=== PATIENT | female | born 1995 | race Caucasian/White ===

== ENCOUNTER 2019-10-27 15:19 | Emergency (ER) | payer OTHER, SELFPAY ==
[2019-10-27 15:29] VITALS: BP 136/76; PULSE 109; RESP 20; TEMP 36.8; O2SAT 100
--- NOTE | 2019-10-27 15:45 | ED.GENADULT ---
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 Daytime and nighttime flu and cold medication, Sudafed, Ibuprofen (last at noon today) and Tylenol (last 8 AM today) with little relief. Dry cough with intermittent productive cough (yellow phlegm). Rhinorrhea and nasal congestion. No exacerbating factors. High fevers, highest 101F, orally with intermittent chills. No nausea, vomiting, and abdominal pain. Denies chest pain, dyspnea, coughing up blood, difficulty swallowing, jaw pain, dental pain, facial pain, foreign body sensation, and rash. Lilly denies being , LMP 2 months ago (irregular). Some parts of this dictation were generated by voice recognition software and may contain typographical and/or grammatical inaccuracies. Related Data Home Medications Medication Instructions Recorded Confirmed Aspirin Childrens 10/27/19 folic acid 10/27/19 Allergies Allergy/AdvReac Type Severity Reaction Status Date / Time No Known Allergies Allergy Unknown Unverified 10/27/19 15:48 Review of Systems Review of Systems: Narrative: CONSTITUTIONAL: Complains of fever with intermittent chills. Denies sweats. EYES: Denies visual changes, redness, discharge. ENT: Complains of rhinorrhea, sore throat, congestion. Denies otalgia. CARDIOVASCULAR: Denies chest pain, palpitations, edema. RESPIRATORY: Denies dyspnea, wheezing. Complains of dry cough, intermittent productive cough. GASTROINTESTINAL: Denies abdominal pain, nausea, vomiting, diarrhea. GENITOURINARY: Denies dysuria, hematuria, abnormal discharge. SKIN: Denies rash or itching. MUSCULOSKELETAL: Denies acute back pain, joint pain, myalgia. NEUROLOGIC: Denies numbness or focal weakness. PSYCHIATRIC: Denies anxiety or depression. All systems reviewed & are unremarkable except as noted in HPI and below PMFSH Past Medical History Medical History (Updated 10/28/19 @ 00:00 by Pedro Pablo Tsai) No significant past medical history Surgical History Surgical History (Updated 02/09/20 @ 16:07 by ROSE MARIE Chen) History of tonsillectomy Family History Family History (Updated 10/27/19 @ 16:08 by ROSE MARIE Chen) Grandparent Diabetes mellitus Grandparent Diabetes mellitus Social History Social History (Updated 10/27/19 @ 16:09 by ROSE MARIE Chen) Smoking status: Never smoker Alcohol intake: current Alcohol use details: Occasionally Substance use: never Living arrangements: with family Occupation/Education: occupation Gender identity (if verbalized by the patient): Female Comments At time of signature, agree with nurse past medical, surgical, social, and family history. There is no relevant family history pertinent to the presenting complaint. Exam Narrative: Exam Narrative: GENERAL: This is a well-nourished, well-developed patient, in no apparent distress. Speaks in full sentences and ambulates with steady gait without dyspnea. HEAD: normocephalic, atraumatic. EYES: PERRL. Sclera clear/white. Vision is grossly intact. EARS: External ears normal, auditory canals clear and without drainage, TMs normal without perforation. Hearing grossly intact. NOSE: External nose normal with no obvious nasal discharge, nares with moderate redness and enlarged turbinates, clear rhinorrhea. THROAT: Mucous membranes moist, posterior pharynx with PND, mild erythema, and no exudate. No tonsil. No drainage, no concern for Peritonsillar abscess. No drooling, trismus, or neck swelling. NECK: Neck supple, non-tender without lymphadenopathy, masses or thyromegaly. CARDIOVASCULAR
== END 2019-10-27 16:14 | disposition home or self-care (01) ==
PROVIDERS: Emergency Provider Nurse Practitioner Family; PCP Nurse Practitioner Family
DX: J11.1 Influenza due to unidentified influenza virus with other respiratory manifestations (principal)
CPT/HCPCS: 87081; 87804; 87880; 99213; G0463

== ENCOUNTER 2022-11-22 08:03 | Emergency (ER) | payer OTHER, SELFPAY ==
[2022-11-22 08:08] VITALS: BP 131/75; PULSE 96; RESP 20; TEMP 36.9; O2SAT 100
--- NOTE | 2022-11-22 08:09 | ED.ABDPAIN ---
HPI - Abdominal Pain General Chief Complaint: Urogenital-Female Stated Complaint: Abdo pain/right back pain Source: patient and RN notes reviewed History of Present Illness HPI narrative: 27-year-old female presents to urgent care with complaints of urinary urgency and frequency for the last 2-3 days. Patient denies burning with urination but states she feels a pressure at the end of urination. Patient also states she was having bilateral lower back pain mostly on the right side a couple days ago. Patient denies any flank pain, fevers, chills, vomiting or nausea. Some parts of this dictation were generated by voice recognition software and may contain typographical and/or grammatical inaccuracies. Related Data Home Medications Medication Instructions Recorded Confirmed norethindrone 1 mg-ethinyl 1 tablet 11/22/22 estradiol 20 mcg (24)-iron 75 mg (4) tablet () Allergies Allergy/AdvReac Type Severity Reaction Status Date / Time No Known Allergies Allergy Unknown Verified 11/22/22 08:18 Review of Systems Review of Systems: CONSTITUTIONAL: Denies fever, chills, or sweats. EYES: Denies visual changes, redness, or discharge. ENT: Denies otalgia and sore throat CARDIOVASCULAR: Denies chest pain, palpitations, or edema. RESPIRATORY: Denies cough or dyspnea. GASTROINTESTINAL: Denies abdominal pain, nausea, vomiting, or diarrhea. GENITOURINARY: Urinary frequency and urgency SKIN: Denies rash or itching. MUSCULOSKELETAL: Bilateral lower back pain NEUROLOGIC: Denies headache, numbness, or weakness. [facility] Past Medical History Medical History (Updated 11/22/22 @ 08:21 by Mary Greenberg APRN) No significant past medical history Surgical History Surgical History (Updated 10/27/19 @ 16:07 by ROSE MARIE Chen) History of tonsillectomy Family History Family History (Updated 10/27/19 @ 16:08 by ROSE MARIE Chen) Grandparent Diabetes mellitus Grandparent Diabetes mellitus Social History Social History (Updated 10/27/19 @ 16:09 by ROSE MARIE Chen) Smoking status: Never smoker Alcohol intake: current Alcohol use details: Occasionally Substance use: never Living arrangements: with family Occupation/Education: occupation Gender identity (if verbalized by the patient): Female Comments At the time of my signature, I reviewed and agree with the nursing past medical, surgical, social, and family history. There is no relevant family history pertinent to the patient complaint. Exam Narrative: GENERAL: This is a well-nourished, well-developed patient, in no apparent distress. HEAD: normocephalic, atraumatic. NECK: Neck supple, non-tender without lymphadenopathy, masses or thyromegaly. CARDIOVASCULAR: Regular rate and rhythm without murmurs, gallops, or rubs. RESPIRATORY: Clear to auscultation. Breath sounds equal bilaterally. No wheezes, rales, or rhonchi. GASTROINTESTINAL: Abdomen soft, non-tender, nondistended. Bowel sounds are active. No hepato-splenomegaly, or palpable masses. No guarding. SKIN: warm, intact with no suspicious lesions or rash, good texture and turgor. NEURO: awake, alert, and oriented to person, place and time. There were no obvious focal neurologic abnormalities. EXTREMITIES: No clubbing, cyanosis, or edema. No joint tenderness, effusion, or edema noted. BACK: Nontender without deformity or crepitance. No flank tenderness. Course Course Level of Care: Express Care Visit Vital Signs Vital signs: Vital Signs Temperature 98.4 F 11/22/22 08:08 Pulse Rate 96 11/22/22 08:08 Respiratory Rate 20 11/22/22 08:08 Blood Pressure 131/75 11/22/22 08:08 Pulse Oximetry 100 11/22/22 08:08 Oxygen Delivery Room Air 11/22/22 08:08 Temperature 98.4 F 11/22/22 08:08 Pulse Rate 96 11/22/22 08:08 Respiratory Rate 20 11/22/22 08:08 Blood Pressure 131/75 11/22/22 08:08 Pulse Oximetry 100 11/22/22 08:08 Oxygen Delive
== END 2022-11-22 08:45 | disposition home or self-care (01) ==
PROVIDERS: Emergency Provider Nurse Practitioner Family
DX: N39.0 Urinary tract infection, site not specified (principal)
CPT/HCPCS: 81003; 81025; 87077; 87086; 87186; 99203; G0463

== ENCOUNTER 2022-12-21 15:09 | Emergency (ER) | payer OTHER, SELFPAY ==
[2022-12-21 15:14] VITALS: BP 133/71; PULSE 94; RESP 18; TEMP 37; O2SAT 100
--- NOTE | 2022-12-21 15:31 | ED.URI ---
HPI - URI/Sore Throat General Chief Complaint: Upper Respiratory Infection Stated Complaint: cold/flu Source: patient and RN notes reviewed History of Present Illness HPI Narrative: 27 yo F presents to urgent care with complaints of congestion, cough, chest pressure, HERCULES, bilateral ear pain, and sore throat. Pt states these started yesterday. Pt reports nausea and chills. Denies any known fevers, vomiting, diarrhea, or abdominal pain. Pt has been taking ibuprofen and Tylenol with minimal relief. Related Data Home Medications Medication Instructions Recorded Confirmed norethindrone 1 mg-ethinyl 1 tablet PO DAILY 11/22/22 12/21/22 estradiol 20 mcg (24)-iron 75 mg (4) tablet () Allergies Allergy/AdvReac Type Severity Reaction Status Date / Time No Known Allergies Allergy Unknown Verified 11/22/22 08:18 Review of Systems Review of Systems: Pertinent positives and pertinent negatives per HPI. [facility] Past Medical History Medical History (Updated 12/21/22 @ 15:47 by Mary Greenberg, PENNIE) No significant past medical history Surgical History Surgical History (Updated 10/27/19 @ 16:07 by ROSE MARIE Chen) History of tonsillectomy Family History Family History (Updated 10/27/19 @ 16:08 by ROSE MARIE Chen) Grandparent Diabetes mellitus Grandparent Diabetes mellitus Social History Social History (Updated 10/27/19 @ 16:09 by ROSE MARIE Chen) Smoking status: Never smoker Alcohol intake: current Alcohol use details: Occasionally Substance use: never Living arrangements: with family Occupation/Education: occupation Gender identity (if verbalized by the patient): Female Comments At the time of my signature, I reviewed and agree with the nursing past medical, surgical, social, and family history. There is no relevant family history pertinent to the patient complaint. Exam Narrative: GENERAL: This is a well-nourished, well-developed patient, in no apparent distress. HEAD: normocephalic, atraumatic. EYES: Sclera clear/white. Vision is grossly intact. EARS: External ears normal, auditory canals clear and without drainage, TMs normal without perforation. Hearing grossly intact. NOSE: External nose normal with no obvious nasal discharge, nares without redness, no rhinorrhea. THROAT: Mucous membranes moist, posterior pharynx clear. NECK: Neck supple, non-tender without lymphadenopathy, masses or thyromegaly. CARDIOVASCULAR: Regular rate and rhythm without murmurs, gallops, or rubs. RESPIRATORY: Clear to auscultation. Breath sounds equal bilaterally. No wheezes, rales, or rhonchi. SKIN: warm, intact with no suspicious lesions or rash, good texture and turgor. NEURO: awake, alert, and oriented to person, place and time. There were no obvious focal neurologic abnormalities. Course Course Level of Care: Express Care Visit Vital Signs Vital signs: Vital Signs Temperature 98.6 F 12/21/22 15:14 Pulse Rate 94 12/21/22 15:14 Respiratory Rate 18 12/21/22 15:14 Blood Pressure 133/71 12/21/22 15:14 Pulse Oximetry 100 12/21/22 15:14 Oxygen Delivery Room Air 12/21/22 15:14 Temperature 98.6 F 12/21/22 15:14 Pulse Rate 94 12/21/22 15:14 Respiratory Rate 18 12/21/22 15:14 Blood Pressure 133/71 12/21/22 15:14 Pulse Oximetry 100 12/21/22 15:14 Oxygen Delivery Room Air 12/21/22 15:14 Reviewed MDM - URI/Sore Throat MDM Narrative Medical decision making narrative: Viral illness may last between 7-21 days; antibiotics do not cure viral illness and are NOT recommended at this time. Also, recommend symptomatic treatment includes: rest, fluids, and increase humidity of the air at home. Recommend Acetaminophen as directed on the bottle to reduce fever, pain, headache. Please schedule a follow-up visit with your personal physician for further evaluation and treatment within 3-5days. If your symptoms persist, change or worsen signific
== END 2022-12-21 15:50 | disposition home or self-care (01) ==
PROVIDERS: Emergency Provider Nurse Practitioner Family
DX: B34.9 Viral infection, unspecified (principal)
CPT/HCPCS: 87081; 87804; 87880; 99213; G0463

== ENCOUNTER 2023-03-27 14:21 | Emergency (ER) | payer OTHER, SELFPAY ==
[2023-03-27 14:26] VITALS: BP 130/80; PULSE 94; RESP 20; TEMP 37.2; O2SAT 98
--- NOTE | 2023-03-27 14:47 | ED.URI ---
HPI - URI/Sore Throat General Chief Complaint: Upper Respiratory Infection Stated Complaint: Ear Pain/Sore Throat/Cough History of Present Illness HPI Narrative: Patient presents with a croupy cough worse when she lays down. No shortness of breath no chest pain no fever. Patient denies any lung problems and states she is a nonsmoker. Patient has tried nasal spray with minimal relief in her symptoms. Related Data Home Medications Medication Instructions Recorded Confirmed norethindrone 1 mg-ethinyl 1 tablet PO DAILY 11/22/22 03/27/23 estradiol 20 mcg (24)-iron 75 mg (4) tablet () Allergies Allergy/AdvReac Type Severity Reaction Status Date / Time No Known Allergies Allergy Unknown Verified 03/27/23 14:38 Review of Systems Review of Systems: CONSTITUTIONAL: Denies chills, or sweats. Reports fever and generalized body aches EYES: Denies visual changes, redness, or discharge. ENT: Denies otalgia. Reports nasal congestion runny nose and sore throat CARDIOVASCULAR: Denies chest pain, palpitations, or edema. RESPIRATORY: Denies dyspnea. Reports occasional cough GASTROINTESTINAL: Denies abdominal pain, nausea, vomiting, or diarrhea. GENITOURINARY: Denies dysuria or hematuria. SKIN: Denies rash or itching. MUSCULOSKELETAL: Denies back pain, joint pain, or myalgia. Reports generalized body aches NEUROLOGIC: Denies headache, numbness, or weakness. PSYCHIATRIC: Denies anxiety or depression. [facility] Past Medical History Medical History (Updated 03/27/23 @ 14:49 by ROSE MARIE Munroe) No significant past medical history Surgical History Surgical History (Updated 10/27/19 @ 16:07 by ROSE MARIE Chen) History of tonsillectomy Family History Family History (Updated 10/27/19 @ 16:08 by ROSE MARIE Chen) Grandparent Diabetes mellitus Grandparent Diabetes mellitus Social History Social History (Updated 10/27/19 @ 16:09 by ROSE MARIE Chen) Smoking status: Never smoker Alcohol intake: current Alcohol use details: Occasionally Substance use: never Living arrangements: with family Occupation/Education: occupation Gender identity (if verbalized by the patient): Female Comments At time of signature, agree with nursing past medical, surgical, social and family history. There is no relevant family history pertinent to the presenting complaint Exam Narrative: The patient is a well-developed, well-nourished in no acute distress. SKIN: Skin is warm and dry without erythema, swelling or exudate. There is good turgor. No tenting. HEAD: Atraumatic. Normocephalic. No temporal or scalp tenderness. EYES: Moist and bright. Sclera and conjunctivae normal. No discharge. PERRLA. Extraocular motions intact. Gross visual acuity intact. EARS: Pinna is normal shape and contour. Clear external auditory canals. TM pearly urbina with good cone of light, no erythema or suppuration. Bilateral cerumen noted no gross hearing deficit. NOSE: pink, moist mucosa with good air movement. Clear rhinorrhea without nasal flaring. Septum midline. Mouth: moist mucous membranes. THROAT; mild erythema noted to posterior oropharynx with moderate postnasal drainage. Without exudate or ulceration.. Uvula midline. Normal movement of soft palate. NECK: Supple and nontender with full range of motion without discomfort. No meningeal signs. LUNGS: Equal and bilateral breath sounds without wheezes, rales or rhonchi. CHEST: The chest wall is without retractions or use of accessory muscles. HEART: Has a regular rate and rhythm without murmur, gallops, click or rub. ABDOMEN: Soft, nontender with positive active bowel sounds. No rebound tenderness. EXTREMITIES: Without cyanosis, clubbing or edema. Equal 2+ distal pulses and 2 second capillary refill noted. NEUROLOGIC: alert, active, . The patient moves all extremities with normal muscle strength. Normal muscle tone is noted. Normal coordination is noted. NO fo
== END 2023-03-27 14:55 | disposition home or self-care (01) ==
PROVIDERS: Emergency Provider Nurse Practitioner Family
DX: J06.9 Acute upper respiratory infection, unspecified (principal); J40 Bronchitis, not specified as acute or chronic
CPT/HCPCS: 99213; G0463

== ENCOUNTER 2023-12-05 10:32 | Emergency (ER) | payer OTHER, SELFPAY ==
--- NOTE | 2023-12-05 10:43 | ED.URI ---
HPI - URI/Sore Throat General Chief Complaint: Upper Respiratory Infection Stated Complaint: nose/aches/headache Time Seen by Provider: 12/05/23 10:47 Source: patient and RN notes reviewed Mode of arrival: ambulatory Limitations: no limitations History of Present Illness HPI Narrative: 28 y/o female presented for c/o cough, nasal congestion, body aches, subjective fever, and headaches for 'a few days.' Denies sob, n/v/d. Taking Zyrtec for symptoms thinking it was allergies. MD elicited complaint: cough Related Data Home Medications Medication Instructions Recorded Confirmed norethindrone 1 mg-ethinyl 1 tablet PO DAILY 11/22/22 03/27/23 estradiol 20 mcg (24)-iron 75 mg (4) tablet () Allergies Allergy/AdvReac Type Severity Reaction Status Date / Time No Known Allergies Allergy Unknown Verified 03/27/23 14:38 Review of Systems Review of Systems: CONSTITUTIONAL: Endorses malaise, chills, sweats, fever EYES: Denies visual changes, redness, or discharge ENT: Reports rhinorrhea, congestion, otalgia, denies sore throat CARDIOVASCULAR: Denies chest pain, palpitations, edema RESPIRATORY: Reports cough, post nasal drainage. Denies dyspnea GASTROINTESTINAL: Denies abdominal pain, nausea, vomiting, diarrhea SKIN: Denies rash or itching MUSCULOSKELETAL: Endorses myalgia NEUROLOGIC: Endorses headache PMFSH Past Medical History Medical History No significant past medical history Surgical History Surgical History History of tonsillectomy Family History Family History Grandparent Diabetes mellitus Grandparent Diabetes mellitus Social History Social History Smoking status: Never smoker Alcohol intake: current Alcohol use details: Occasionally Substance use: never Living arrangements: with family Occupation/Education: occupation Gender identity (if verbalized by the patient): Female Exam Narrative: GENERAL: Ill-appearing, nontoxic no acute distress. EYES: PERRLA, conjunctivae clear ENT: Mucous membranes moist. TMs pearly anderson with dull light reflex and Ttubes in place bilaterally; no tragal tenderness. Oropharynx not erythematous without lesions or exudate, no drooling, no hoarseness, no trismus, uvula midline. No tripod positioning, muffled voice, soft palate or pharyngeal wall bulging NECK: Supple. No lymphadenopathy CHEST: Clear to auscultation, breath sounds equal. No wheezing, rhonchi, rales, or stridor. No respiratory distress, speaks in full sentences. 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 HEART: Regular rate and rhythm. No murmur heard. SKIN: Warm, dry, no rash. NEURO: Alert and oriented x3. PSYCH: Normal mood and affect Course Course Emergency Course: Patient is aware of diagnosis, understands and agrees to treatment plan. Anticipatory guidance given. Patient agrees to follow-up as directed and is aware of reasons to seek care at the emergency department. Portions of this record may have been created with voice recognition software Level of Care: Express Care Visit Vital Signs Vital signs: reviewed MDM - URI/Sore Throat MDM Narrative Medical decision making narrative: Negative flu and COVID. Results reviewed with patient. Discussed physical exam findings. Advised supportive measures and signs/symptoms to go to the ER. Pt is appropriate for outpt treatment and f/u. Differential Diagnosis Differential diagnosis: Likely upper respiratory infection, otitis media, sinusitis, viral infection, bronchitis, influenza and pharyngitis Discharge Plan Discharge Clinical Impression: Viral infection Patient Disposition: Home, Self-Care Condition: Stable Instructions: Upper Respiratory Infection (ED) Additional Instructions: Flu and COVID nega
[2023-12-05 10:54] VITALS: BP 125/73; PULSE 98; RESP 20; TEMP 36.6; O2SAT 100
== END 2023-12-05 11:10 | disposition home or self-care (01) ==
PROVIDERS: Emergency Provider Nurse Practitioner Family; PCP Physician Assistant
DX: B34.9 Viral infection, unspecified (principal); Z20.822 Contact with and (suspected) exposure to COVID-19
CPT/HCPCS: 87426; 87804; 99213; G0463

== ENCOUNTER 2024-03-28 17:04 | Emergency (ER) | payer OTHER, SELFPAY ==
[2024-03-28 17:09] VITALS: BP 136/68; PULSE 87; RESP 16; TEMP 36.8; O2SAT 99
--- NOTE | 2024-03-28 17:43 | ED.GENADULT ---
HPI - General Adult General Chief complaint: Skin/Abscess/Foreign Body Stated complaint: rash on leg Time Seen by Provider: 03/28/24 17:33 Source: patient and RN notes reviewed Mode of arrival: ambulatory Limitations: no limitations History of Present Illness HPI narrative: This patient presents today complaining of rash to bilateral anterior lower legs that started earlier this week after a bad sunburn in the tanning beds. Today the sunburn portion is better but the rash has darkened. She used google and believes she has sunburn purpura. No [id number] treatment prior to arrival. Related Data Home Medications Medication Instructions Recorded Confirmed amoxicillin 875 mg-potassium tablet 03/28/24 clavulanate 125 mg tablet bupropion HCl 150 mg 24 hr tablet, mg PO 03/28/24 extended release buspirone 10 mg tablet mg 03/28/24 fluconazole 150 mg tablet mg 03/28/24 hydroxyzine HCl 25 mg tablet mg 03/28/24 metoclopramide HCl 10 mg tablet mg 03/28/24 norethindrone 1 mg-ethinyl tablet 03/28/24 estradiol 20 mcg (24)-iron 75 mg (4) tablet (Aurovela 24 Fe) triamcinolone acetonide 0.1 % applic topical 03/28/24 03/28/24 topical cream Allergies Allergy/AdvReac Type Severity Reaction Status Date / Time No Known Allergies Allergy Unknown Verified 03/27/23 14:38 Review of Systems Review of Systems: CONSTITUTIONAL: Denies body aches, fever, chills, or sweats. EYES: Denies visual changes, redness, or discharge. ENT: Denies rhinorrhea, congestion, sore throat, or otalgia. CARDIOVASCULAR: Denies chest pain, palpitations, or edema. RESPIRATORY: Denies cough or dyspnea. GASTROINTESTINAL: Denies abdominal pain, nausea, vomiting, or diarrhea. GENITOURINARY: Denies dysuria or hematuria. SKIN: + rash MUSCULOSKELETAL: Denies back pain, joint pain, or myalgia. NEUROLOGIC: Denies headache, numbness, tingling, or weakness. PSYCH: Denies depression or anxiety. [facility] Past Medical History Medical History No significant past medical history Surgical History Surgical History History of tonsillectomy Family History Family History Grandparent Diabetes mellitus Grandparent Diabetes mellitus Social History Social History Smoking status: Never smoker Alcohol intake: current Alcohol use details: Occasionally Substance use: never Living arrangements: with family Occupation/Education: occupation Gender identity (if verbalized by the patient): Female Comments At time of signature, I have reviewed and agree with nursing past medical, surgical, social and family history unless otherwise noted. Please see nursing chart for further information. There is no relevant family history pertinent to the presenting complaint Exam Narrative: GENERAL: Well-appearing, well-nourished, and in no acute distress. HEAD: Normocephalic, atraumatic. EYES: EOMI. No redness or drainage. Conjunctivae normal. ENT: Mucous membranes pink and moist. NECK: Normal AROM. CHEST: No respiratory distress. EXTREMITIES: Normal range of motion. No edema. SKIN: Warm, dry Capillary refill normal. Normal skin turgor. Patches of non blanchable purpura to the bilateral anterior lower legs. No surrounding erythema, edema. Nontender to palpation. NEURO: No focal deficits. Alert and oriented x3. Gait steady. PSYCH: Normal affect. No signs of depression or anxiety. Course Course Level of Care: Express Care Visit Vital Signs Vital signs: Vital Signs Temperature 98.2 F 03/28/24 17:09 Pulse Rate 87 03/28/24 17:09 Respiratory Rate 16 03/28/24 17:09 Blood Pressure 136/68 03/28/24 17:09 Pulse Oximetry 99 03/28/24 17:09 Oxygen Delivery Room Air 03/28/24 17:0
== END 2024-03-28 17:52 | disposition home or self-care (01) ==
PROVIDERS: Emergency Provider Nurse Practitioner
DX: D69.2 Other nonthrombocytopenic purpura (principal)
CPT/HCPCS: 99211; G0463

== ENCOUNTER 2024-04-05 17:45 | Emergency (ER) | payer OTHER, SELFPAY ==
[2024-04-05 17:55] VITALS: BP 126/61; PULSE 71; RESP 16; TEMP 36.6; O2SAT 100
[2024-04-05 18:10] LABS: EDUAAPPEAR Clear; EDUABILI Negative; EDUABLOOD Negative; EDUACOLOR1 Yellow; EDUAGLUCOSE Negative; EDUAKETONE Negative; EDUALEUKO Negative; EDUANITRATE Negative; EDUAPROTEIN Negative; EDUAUROBILI 0.2
--- NOTE | 2024-04-05 20:56 | ED.GENADULT ---
HPI - General Adult General Chief complaint: Urogenital-Female Stated complaint: poss uti Time Seen by Provider: 04/05/24 18:24 Source: patient, RN notes reviewed and old records reviewed Mode of arrival: ambulatory Limitations: no limitations History of Present Illness HPI narrative: 28-year-old female to Express Care for complaint of a urinary frequency, vaginal irritation, and odorous discharge for 2 days. Patient reports history BV. Patient states that she was seen on March 25 at [facility] Emergency Department and diagnosed and treated for bilateral otitis media and a urinary tract infection. Patient reports she since been treated with Diflucan for yeast infection. Patient states that she had unprotected sex with a new partner on March 24 and March 31. Patient denies back pain, flank pain, abdominal pain, urinary incontinence dysuria bowel changes, fever, genital lesions, hematuria, allergies. Patient in no acute distress. Related Data Home Medications Medication Instructions Recorded Confirmed norethindrone 1 mg-ethinyl tablet 03/28/24 estradiol 20 mcg (24)-iron 75 mg (4) tablet (Aurovela 24 Fe) Allergies Allergy/AdvReac Type Severity Reaction Status Date / Time No Known Allergies Allergy Unknown Verified 04/05/24 18:26 Review of Systems Review of Systems: All systems reviewed & are unremarkable except as noted in HPI and below Constitutional: Constitutional: Reports as per HPI, Denies fatigue and Denies fever(s) Eyes: Eyes: Reports no additional eye complaints ENT: Reports system reviewed and no additional complaints, except as documented Cardiovascular: Cardiovascular: Reports no additional cardiovascular complaints, Denies chest pain and Denies dyspnea Respiratory: Respiratory: Reports no additional respiratory complaints, Denies cough and Denies dyspnea Genitourinary: Genitourinary: Reports as per HPI, Denies hematuria, Denies urinary frequency, Reports nocturia, Denies genital lesions, Denies pelvic pain, Denies flank pain, Denies urinary incontinence, Reports vaginal odor and Reports other ( Vaginal irritation) Musculoskeletal: Musculoskeletal: Reports no additional musculoskeletal complaints Neurologic: Reports system reviewed and no additional complaints, except as documented Psychiatric: Psychiatric: Reports no additional psychiatric complaints [facility] Past Medical History Medical History No significant past medical history Surgical History Surgical History History of tonsillectomy Family History Family History Grandparent Diabetes mellitus Grandparent Diabetes mellitus Social History Social History Smoking status: Never smoker Alcohol intake: current Alcohol use details: Occasionally Substance use: never Living arrangements: with family Occupation/Education: occupation Gender identity (if verbalized by the patient): Female Comments At the time of my signature, I reviewed and agree with the nursing past medical, surgical, social, and family history. There is no relevant family history pertinent to the patient complaint. Exam Const: General: cooperative, healthy appearing, comfortable, no acute distress, alert and well nourished Nutritional Appearance: well nourished Orientation/consciousness: patient oriented x3 Limitations: no limitations HENMT: Head: normal to inspection Ears: external ears normal Face/Nose/Sinus: Normal external nose present, Normal nares present, normal facial exam, No erythema and No edema Face and sinus: normal facial exam, no erythema and no edema Mouth: Yes Normal oral and palatal mucosa present Eyes: General: appearance normal, both eyes and all related structures Neck: Neck: norm
[2024-04-06 15:03] LABS: Trichomonas Vag PCR NOT DETECTED (NOT DETECTE)
[2024-04-06 15:24] LABS: Chlamydia trachomatis NOT DETECTED (NOT DETECTE); Neisseria gonorrhoeae PCR NOT DETECTED (NOT DETECTE)
== END 2024-04-05 18:41 | disposition home or self-care (01) ==
PROVIDERS: Emergency Provider Nurse Practitioner Family
DX: N76.0 Acute vaginitis (principal)
CPT/HCPCS: 81003; 87086; 87088; 87491; 87591; 87661; 99214; G0463

== ENCOUNTER 2024-08-06 17:13 | Emergency (ER) | payer OTHER, SELFPAY ==
[2024-08-06 17:25] VITALS: BP 129/77; PULSE 79; RESP 18; TEMP 35.8; O2SAT 100
[2024-08-06 17:26] VITALS: BP 129/77; PULSE 79; RESP 18; TEMP 35.8; O2SAT 100
[2024-08-06 17:37] LABS: EDSTREPNEGPOS1 Negative (Negative)
[2024-08-06 18:04] LABS: EDUAAPPEAR Cloudy; EDUABILI Negative (Negative); EDUABLOOD Trace (Negative); EDUACOLOR1 Yellow; EDUAGLUCOSE Negative (Negative); EDUAKETONE Negative (Negative); EDUALEUKO Negative (Negative); EDUANITRATE Negative (Negative); EDUAPROTEIN Negative (Negative); EDUAUROBILI 0.2
--- NOTE | 2024-08-06 18:12 | ED_ITS ---
HPI - General Adult General Chief complaint: Upper Respiratory Infection Stated complaint: Headache/Ear Pain/Sore Throat Time Seen by Provider: 08/06/24 18:14 Source: patient, RN notes reviewed and old records reviewed Mode of arrival: ambulatory Limitations: no limitations History of Present Illness HPI narrative: 28-year-old female to Express Care with complaint of sore throat, migraine, right ear pain, left lower back pain, diarrhea, nausea, urinary frequency, and feeling like stomach is in knots . 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 Patient denies, abdominal pain, shortness of breath, chest pain, allergies. Patient resting comfortably in no acute distress. Respirations even and nonlabored. Patient speaking in full sentences without difficulty. Patient states she is able to tolerate fluids by mouth. Patient is currently being treated for bacterial vaginosis. Related Data Home Medications Medication Instructions Recorded Confirmed norethindrone 1 mg-ethinyl tablet 03/28/24 estradiol 20 mcg (24)-iron 75 mg (4) tablet (Aurovela 24 Fe) Allergies Allergy/AdvReac Type Severity Reaction Status Date / Time No Known Allergies Allergy Unknown Verified 04/05/24 18:26 Review of Systems Review of Systems: All systems reviewed & are unremarkable except as noted in HPI and below Constitutional: Constitutional: Reports as per HPI and Reports headache(s) Eyes: Eyes: Reports no additional eye complaints ENT: Reports as per HPI, Reports otalgia ( Right) and Reports sore throat Cardiovascular: Cardiovascular: Reports no additional cardiovascular complaints, Denies chest pain and Denies dyspnea Respiratory: Respiratory: Reports no additional respiratory complaints, Denies cough and Denies dyspnea Gastrointestinal: Gastrointestinal: Reports as per HPI, Reports diarrhea and Reports nausea Genitourinary: Genitourinary: Reports nocturia Musculoskeletal: Musculoskeletal: Reports as per HPI and Reports back pain ( lower left) Neurologic: Reports system reviewed and no additional complaints, except as documented Psychiatric: Psychiatric: Reports no additional psychiatric complaints [facility] Past Medical History Medical History No significant past medical history Surgical History Surgical History History of tonsillectomy Family History Family History Grandparent Diabetes mellitus Grandparent Diabetes mellitus Social History Social History Smoking status: Never smoker Alcohol intake: current Alcohol use details: Occasionally Substance use: never Living arrangements: with family Occupation/Education: occupation Gender identity (if verbalized by the patient): Female Comments At the time of my signature, I reviewed and agree with the nursing past medical, surgical, social, and family history. There is no relevant family history pertinent to the patient complaint. Exam Const: General: cooperative, healthy appearing, comfortable, no acute distress, alert and well nourished Nutritional Appearance: well nourished Orientation/consciousness: patient oriented x3 Limitations: no limitations HENMT: Head: normal to inspection Ears: external ears normal and TM abnormal with myringotomy tube present bilateral Face/Nose/Sinus: Normal external nose present, Normal nares present, normal facial exam, No erythema and No edema Face and sinus: normal facial exam, no erythema and no edema Mouth: Yes Normal oral and palatal mucosa present Eyes: General: appearance normal, both eyes and all related structures Neck: Neck: normal visual inspection, full ROM and no meningeal signs Lymphatic: no lymphadenopathy noted and no lymphedema noted Chest: Chest palpation & inspection: normal inspection of the chest Resp: Effort & Inspection: normal respiratory effort and able to speak in complete sentences Auscultation: clear to auscultation bilaterally Cardio: Jugular venous distension: no JVD Rate: regular rate Rhythm: regular rhythm Back/Spine/Pelvis: Cervical Spine: cervical ROM normal Skin: General skin exam: normal color, no rashes or lesions noted and turgor normal Neuro: General: patient oriented x3, gait normal, moves all extremities and no meningeal signs Speech: normal speech Gait exam (Neuro): Normal gait present Extrem: General: normal to inspection, full ROM and capillary refill normal Psych: Appearance: grossly normal and well kempt Course Course Emergency Course: Some parts of this dictation were generated by voice recognition software and may contain typographical and/or grammatical inaccuracies. Level of Care: Express Care Visit Vital Signs Vital signs: Vital Signs Temperature 35.8 C L 08/06/24 17:25 Pulse Rate 79 08/06/24 17:25 Respiratory Rate 18 08/06/24 17:25 Blood Pressure 129/77 08/06/24 17:25 Pulse Oximetry 100 08/06/24 17:25 Oxygen Delivery Room Air 08/06/24 17:25 Temperature 35.8 C L 08/06/24 17:26 Pulse Rate 79 08/06/24 17:26 Respiratory Rate 18 08/06/24 17:26 Blood Pressure 129/77 08/06/24 17:26 Pulse Oximetry 100 08/06/24 17:26 Oxygen Delivery Room Air 08/06/24 17:26 reviewed Medical Decision Making MDM Narrative Medical decision making narrative: 28-year-old female to Express Care with complaint of sore throat, migraine, right ear pain, left lower back pain, diarrhea, nausea, urinary frequency, and feeling like stomach is in knots . 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 Patient denies, abdominal pain, shortness of breath, chest pain, allergies. Patient resting comfortably in no acute distress. Respirations even and nonlabored. Patient speaking in full sentences without difficulty. Patient states she is able to tolerate fluids by mouth. Patient is sitting comfortably in exam room nontoxic in appearance. Patient is currently being treated for bacterial vaginosis. patient exam unremarkable. When patient was informed of negative strep, patient requested influenza and COVID testing. Strep, COVID, influenza negative. Strep culture sent. Patient appropriate for outpatient treatment and follow-up. Discharge instructions reviewed with patient, as well as provided in writing per nursing staff. The instructions also include specific and strict return/GO TO THE ER as well as f/u information. All questions have been answered, and the patient deny any further questions with discharge and discharge plan. Some parts of this dictation were generated by voice recognition software and may contain typographical and/or grammatical inaccuracies. Differential Diagnosis Differential Diagnosis: UTI, STI, gastroenteritis, viral infection, otitis media, strep throat, COVID, influenza Vital Signs Vital Signs: Vital Signs Temperature 35.8 C L 08/06/24 17:25 Pulse Rate 79 08/06/24 17:25 Respiratory Rate 18 08/06/24 17:25 Blood Pressure 129/77 08/06/24 17:25 Pulse Oximetry 100 08/06/24 17:25 Oxygen Delivery Room Air 08/06/24 17:25 Temperature 35.8 C L 08/06/24 17:26 Pulse Rate 79 08/06/24 17:26 Respiratory Rate 18 08/06/24 17:26 Blood Pressure 129/77 08/06/24 17:26 Pulse Oximetry 100 08/06/24 17:26 Oxygen Delivery Room Air 08/06/24 17:26 Lab Data Labs: Lab Results 08/06/24 08/06/24 08/06/24 Range/Units 17:35 18:02 18:22 POC Urine Color Yellow POC Urine Clarity Cloudy POC Urine pH 6.0 POC Ur Specif [place] 1.030 POC Urine Protein Negative (Negative) POC Ur Glucose (UA) Negative (Negative) POC Urine Ketones Negative (Negative) POC Urine Blood Trace (Negative) POC Urine Nitrite Negative (Negative) POC Urine Bilirubin Negative (Negative) POC Urine Urobilinogen 0.2 POC U Leukocyte Esteras Negative (Negative) POC Influenza A Ag Negative (Negative) POC Influenza B Ag Negative (Negative) POC SARS CoV-2 Ag Negative (Negative) POC Grp A Strep Screen Negative (Negative) Discharge Plan Discharge Clinical Impression: Viral infection Patient Disposition: Home, Self-Care Condition: Stable Instructions: Viral Syndrome (ED) Additional Instructions: Your rapid strep swab was negative today at [facility]. A throat culture will be sent to the laboratory for further testing. If the test is positive, you will receive a phone call within 48 hours and an appropriate antibiotic will be initiated at that time. Your Covid test and influenza test were also negative Your symptoms are likely due to a viral illness, which is not treated with antibiotics. Viral symptoms can be present for up to a few weeks. -Alternate Tylenol and Motrin per package directions for fever or pain. -Antihistamine medication such as Benadryl at night and Zyrtec/Claritin/Carlota during the day can help improve symptoms. -Use Flonase twice a day for 5 days then daily to help reduce the inflammation and dry up your sinuses. -You can also use Sudafed or Mucinex. Be sure to drink plenty of water with these medications at least 8 ounces with every dose and it is important to drink 8 to 10 glasses of water per day. Water is a natural decongestant -Eat and drink things that are easy to swallow, like tea or soup, or popsicles. -Oral rinses such as: Salt water gargles and/or may use topical anesthetic (eg. Chloraseptic spray) or lozenges to relieve dryness or throat pain). -Frequent hand washing or hand instructor trainer canine service is one of the best ways to prevent spread of infection. -Using a vaporizer or humidifier at night will also help thin secretions and help with coughing up phlegm. -Follow up with primary care provider in 2-3 days if condition is not improving; or seek ER visit if you have trouble breathing, cannot drink enough fluids, have muffled voice, difficulty opening your mouth, or severe swelling. Prescriptions: No Action norethindrone-e.estradiol-iron [Aurovela 24 Fe] 1 mg-20 mcg (24)/75 mg (4) tablet metronidazole 500 mg tablet 500 mg PO Q12H Qty: 14 0RF fluconazole [Diflucan] 100 mg tablet 100 mg PO DAILY Qty: 2 0RF Rx Instructions: take 1 tablet immediately. Repeat in 7 days if needed Follow-up/Referrals: UNKNOWN,DOCTOR [Primary Care Provider] - Stand Alone Forms: Work/School Release IP
[2024-08-06 18:24] LABS: EDCOVIDSCREEN Negative (Negative); EDINFLUASCREEN Negative (Negative); EDINFLUBSCREEN Negative (Negative)
== END 2024-08-06 18:34 | disposition home or self-care (01) ==
PROVIDERS: Emergency Provider Nurse Practitioner Family
DX: B34.9 Viral infection, unspecified (principal); Z20.822 Contact with and (suspected) exposure to COVID-19
CPT/HCPCS: 81003; 87081; 87426; 87804; 87880; 99213; G0463

== ENCOUNTER 2025-08-13 15:56 | Emergency (ER) | payer OTHER, SELFPAY ==
--- OUTSIDE RECORDS SUMMARY | 2025-08-13 15:59 | XMS_ITS | Clinical Summary ---
Author Organization [facility] Address [address] [address] Phone Care Team Providers Care Timber Repairer Name Role Phone Che Richards MD Primary Care Provide r Allergies No known active allergies Medications ondansetron (ZOFRAN) 4 MG Tablet Take 1 Tab by mouth every 8 hours as needed for Nausea - 1st line. 10 Tab 11/03/2018 Active Aspirin 81 MG Tablet Take 81 mg by mouth daily. Active FOLIC ACID PO Take by mouth. Active Active Problems Problem Noted Date Diagnosed Date Anxiety and depression 12/22/2021 Family History Medical History Relation Name Comments Other-comment Mother Relation Name Status Comments Brother 1 Alive Brother 2 Alive Father Alive Mother Social History Tobacco Use Types Packs/Day Years Used Date Smoking Tobacco: Never Smokeless Tobacco: Never Alcohol Use Standard Drinks/Week Comments Yes 0 (1 standard drink = 0.6 oz pur e alcohol) every other week PHQ-2 Answer Date Recorded Total Score - Questions 1-9 17 02/2022 Comments Unknown Sex and Gender Information Value Date Recorded Sex Assigned at Not on file Legal Sex Female 8:06 PM CDT Gender Identity Not on file Sexual Orientation Not on file Last Filed Vital Signs Vital Sign Reading Time Taken Comments Blood Pressure 138/84 03/23/2019 10:27 AM CDT Pulse 92 03/23/2019 10:27 AM CDT Temperature 36.7 C (98 F) 03/23/2019 10:27 AM CDT Respiratory Rate 16 03/23/2019 10:27 AM CDT Oxygen Saturation 97% 03/23/2019 10:27 AM CDT Inhaled Oxygen Concentration - - Weight 136.1 kg (300 lb) 03/23/2019 10:27 AM CDT Height 167.6 cm (5' 6) 03/23/2019 10:27 AM CDT Body Mass Index 48.42 03/23/2019 10:27 AM CDT Plan of Treatment Health Maintenance Due Date Last Done Comments Hepatitis C Virus (HCV) Screening 1993 Pap Smear 2014 Varicella Immunization (2 of 2 - 13+ 2-dose series) 02/22/2017 01/25/2017 Cervical Cancer Screening (CCS) 11/19/2023 HPV/Cotest 11/19/2023 Influenza Immunization (#1) 05/19/202505/20, 08/23/2021, 11/27/2020, Additional history exists SARS-COV-2 Immunization (2024- season) 2025 06/15/2022, 09/22/2021, 03/23/2021, Additional history exists Respiratory Syncytial Virus (RSV) Immunization (Adult) (1 - 1-dose 75+ series) 2068 Hepatitis B Immunization Completed 994, 03/01/1994, 01/31/1994 DTaP/Tdap/Td Immunization Discontinued 2018, 03/19/2008, 02/16/1999, Additional history exists TdaP Immunization Completed 11/13/2018, 03/19/2008 Human Papillomavirus (HPV) Immunization Completed 2019, 07/22/2019, 05/31/2019, Additional history exists Meningococcal Immunization (ACWY) Aged Out No longer eligible based on patient's age to complete this topic Pneumococcal Immunization Combined Aged Out No longer eligible based on patient's age to complete this topic Rotavirus Immunization Aged Out No lo nger eligible based on patient's age to complete this topic Goals Goal Patient Goal Type Associated Problems Recent Progress Patient-Stated? Author I want to be happy again. Behavioral Health Improving( 12:48 PM CDT) Yes Viktoria Hill LCSW Note: to have reduction of anxiety and depression symptoms. Goal Reviewed with: patient Readiness to change: Ready to change Department associated with goal: [facility] Steps to achieve goal: will attend counseling/psychotherapy sessions at least once monthly, utilizing individual and/or group sessions to express thoughts and feelings. to identify, verbalize and process at least three contributing factors/triggers to anxiety and depression. to identify and verbalize at least three actions/skills to prevent and/or cope with anxiety and depression. to put into action, at least one time weekly, for one month, an action/skill to prevent and or cope with anxiety and depression. Self care Behavioral Health Improving( 12:48 PM CDT) Viktoria Trevino LCSW Note: Goal Reviewed with: patient Readiness to change: Ready to change Department associated with goal: [facility] Steps to achieve goal: will identify at least two warning signs self care is being neglected. will identify at least two boundaries that may help to improve opportunities for self-care. will identify at least two ways/skills/habits of self-care believed to have a positive outcome on overall wellbeing. Will attend individual or group therapy sessions at least 1x/month for at least 6 sessions. Insurance MEDICAID [place] Care Teams Timber Repairer Relationship Specialty Start Date End Date Che Richards MD [address] [place] [address] DR MCKENNA [address] [place] [id number] PCP - General Family Medicine 01/29/25
--- OUTSIDE RECORDS SUMMARY | 2025-08-13 15:59 | XMS_ITS | Clinical Summary ---
Author Organization [facility] Address [address] [place] [address] Care Team Providers Care Chief Airport Guide Name Role Phone Grecia Vasques Unavailable [phone] Che Richards MD Primary Care Provide r Allergies Active Allergy Reactions Criticality Noted Date Comments Citalopram Rash Medium 07/11/2022 Medications norethindrone-e.e stradioL-iron (Aurovela 24 Fe) 1 mg-20 mcg (24)/75 mg (4) per tabletIndications :Oral contraceptive pill surveillance Take 1 tablet by mouth daily 84 tablet 5 Active buPROPion XL (WELLBUTRIN XL) 300 mg 24 hr tabletIndications :BOYD (generalized anxiety disorder),Moderat e episode of recurrent major depressive disorder (HCC) Take 1 tablet (300 mg total) by mouth every morning 90 tablet 1 5 11/05/19 26 Active busPIRone (BUSPAR) 5 mg tabletIndications :Generalized Anxiety Disorder Take 1 tablet (5 mg total) by mouth 3 (three) times a day as needed (anxiety) 90 tablet 5 Active norethindrone-e.e stradioL-iron (Aurovela 24 Fe) 1 mg-20 mcg (24)/75 mg (4) per tabletIndications :Oral contraceptive pill surveillance Take 1 tablet by mouth daily 84 tablet 4 05/23/08/05/20 25 Discontinu ed(Reorder ) cyanocobalamin (Vitamin B-12) 2,000 mcg tablet TAKE 1 TABLET BY MOUTH DAILY 90 tablet 1 5 08/07/20 25 Discontinu ed(Patient Reported) buPROPion XL (WELLBUTRIN XL) 300 mg 24 hr tabletIndications :BOYD (generalized anxiety disorder),Moderat e episode of recurrent major depressive disorder (HCC) Take 1 tablet (300 mg total) by mouth every morning 90 tablet 5 08/07/20 25 Discontinu ed(Reorder ) Active Problems Problem Noted Date Diagnosed Date HSV-1 (herpes simplex virus 1) infection 025 Genital warts 04/12/2025 Obesity, unspecified 01/29/2025 Assessment & Plan (01/29/2025 9:55 AM CDT): She was counseled on the importance of maintaining a healthy weight and the risks of obesity. Weight loss recommended. Encourage 150min/ week of exercise Encourage 1500 calories in a day for weight loss Fatigue 01/29/2025 Assessment & Plan (01/29/2025 9:55 AM CDT): Orders: Vitamin B12; Future Encounter for wellness examination 01/28/2025 Assessment & Plan (01/29/2025 9:55 AM CDT): Ordered CBC, cmp, lipid, hgb a1c,TSH w/ reflex to t4 Pap smear managed by ob Recommend staying up to date on vaccines F/u in 1 year for annual Orders: CBC with auto differential; Future Comprehensive metabolic panel; Future Hemoglobin A1c; Future Lipid panel; Future Thyroid Function Barber; Future Encounter to establish care 01/28/2025 Assessment & Plan (01/29/2025 9:55 AM CDT): Diarrhea 03/25/2024 Nausea 03/25/2024 Urinary tract infection in female 03/25/2024 Urticaria 03/25/2024 Contact dermatitis 03/25/2024 Class 3 severe obesity witho ut serious comorbidity with body mass index (BMI) of 50.0 to 59.9 in adult 03/04/2024 Assessment & Plan (08/08/2025 5:29 PM BATH STEWARD/STEWARDESS): Chronic, stable, not at goal BMI less than 30. Wt Readings from Last 3 Encounters: 08/07/25 (!) 138.3 kg (305 lb) 08/07/25 (!) 138.3 kg (305 lb) 07/23/25 136.1 kg (300 lb) Body mass index is 49.23 kg/m . BMI plan includes nutrition and exercise changes as mental health may be improved by regular exercise Assessment & Plan (03/04/2024 6:44 PM CDT): - avoid/limit processed, fried/fast foods and simple/refined carbohydrate. Aim to eat plenty of vegetables, whole grains, legumes, lean protein, low-fat dairy, fruit, and include some healthy fats such as olive oil, nuts, avocados, and baked fatty fish such as salmon. - aim to reduce total carbohydrates to less than 150 g daily - aim for at least 30 minutes of moderate to intense aerobic activity most days of the week, strength training at least 2-3 times weekly Referred otalgia of both ears 11/28/2023 Assessment & Plan (06/26/2024 9:37 AM CDT): Avoid ear cleaning techniques Avoid water to ears Follow up in 9 months for ear tube check TMJ dysfunction discussed and Handout provided Assessment & Plan (11/28/2023 2:36 PM CDT): Ear tube area open and no sign of infection Please have Dental evaluation regarding Condition of teeth, and Temporomandibular joint dysfunction discussed and Handout provided Dysfunction of both eustachian tubes 10/06/2023 Assessment & Plan (08/08/2025 5:29 PM BATH STEWARD/STEWARDESS): She experiences right ear pain with wax obstruction preventing eardrum visualization. Attempted earwax removal and advised home remedies for earwax care at home and encouraged pt follow up with ENT Assessment & Plan (06/26/2024 9:36 AM CDT): Avoid ear cleaning techniques Avoid water to ears Follow up in 9 months for ear tube check Assessment & Plan (11/28/2023 2:36 PM CDT): Ear tube area open and no sign of infection Please have Dental evaluation regarding Condition of teeth, and Temporomandibular joint dysfunction Assessment & Plan (10/06/2023 1:10 PM BATH STEWARD/STEWARDESS): Avoid ear cleaning techniques Avoid water to ears Dental contacts provided for TMJ dysfunction Chronic otitis media of both ears with effusion 09/04/2023 Assessment & Plan (09/04/2023 2:45 PM BATH STEWARD/STEWARDESS): Hearing test Bilateral myringotomy with T-tube placement Risks and complications discussed including anesthesia, bleeding, infection, hearing loss, ear tubes may fall out early, fall inwards, stay in longer than a few years, get clogged, fall out and leave a hole in the ear drum that would need to be patched, drain clear fluid. Acute right-sided low back pain with right-sided sciatica 01/05/2023 Assessment & Plan (01/05/2023 1:48 PM CDT): Urine dipstick ordered in office today. Test was negative. Will give a trial of oral steroids, switch anti-inflammatory to diclofenac. May still take Tylenol as needed. X-rays of the lumbar spine ordered. Recent CT of abdomen and pelvis reviewed. Acute bronchitis 08/12/2022 Acute bronchospasm 08/12/2022 Acute right otitis media 08/12/2022 Vitamin B12 deficiency 07/13/2022 Assessment & Plan (11/29/2022 12:59 PM CDT): - chronic, not well controlled - noted on 06/2022 - started on supplementation but not taking it - restart supplementation, script sent in Lab Results Component Value Date VITB12 155 (L) 07/12/2022 Lab Results Component Value Date FOLATE 4.5 (L) 07/12/2022 Folate deficiency 07/13/2022 Assessment & Plan (11/29/2022 12:58 PM CDT): - chronic, not well controlled - noted on 06/2022 - started on supplementation but not taking it - restart supplementation, script sent in Lab Results Component Value Date VITB12 155 (L) 07/12/2022 Lab Results Component Value Date FOLATE 4.5 (L) 07/12/2022 Vitamin D deficiency 07/13/2022 Assessment & Plan (11/29/2022 12:59 PM CDT): - chronic, not well controlled - noted on 06/2022 - started on supplementation but not taking it - restart supplementation, script sent in No results found for: 25HYDROVITD S/P tonsillectomy 07/11/2022 S/P cholecystectomy 07/11/2022 BOYD (generalized anxiety disorder) 07/11/2022 Assessment & Plan (08/08/2025 5:29 PM BATH STEWARD/STEWARDESS): Chronic problem. Not at goal at this time. BOYD-7 score today: 12 PHQ-9 score today: 17 Formerly Rx wellbutrin however Dc'ed it due to concerns for insurance coverage in the future Rx today: resume wellbutrin 300mg daily, add PRN Buspirone 5mg TID Mechanism of action side effects explained to patient. RTC in 6 weeks for close follow up Denies suicidal or homicidal ideation at this time. Emergent behavioral health information given including 911 for worsening symptoms Orders: buPROPion XL (WELLBUTRIN XL) 300 mg 24 hr tablet; Take 1 tablet (300 mg total) by mouth every morning busPIRone (BUSPAR) 5 mg tablet; Take 1 tablet (5 mg total) by mouth 3 (three) times a day as needed (anxiety) Assessment & Plan (03/24/2025 12:48 PM CDT): Assessment & Plan (01/29/2025 9:55 AM CDT): - chronic -not at goal - On bupropion XL 150 mg daily Orders: buPROPion XL (WELLBUTRIN XL) 150 mg 24 hr tablet; Take 1 tablet (150 mg total) by mouth every morning Assessment & Plan (03/04/2024 6:47 PM CDT): - chronic, not controlled - start bupropion XL 150 mg daily plus buspirone 10 mg b.i.d. - instructed patient that bupropion may cause worsening anxiety and to notify office if concerns with mood/behavior Assessment & Plan (10/18/2023 4:29 AM BATH STEWARD/STEWARDESS): 10/11 Charity, this is Deegee from road traffic controller consulting you for direction on the ED disposition per dizziness protocol pt is c/o being under a lot of stress recently c/o being lightheaded, constant chest pressure, concerns with possible , anxiety?, or SE of Effexor. Stated she was started on the Effexor 08/23/23 and admits to taking it inconsistently and unsure if the SE are related to the med or not. Stated she is also in a bad relationship and again unsure if these are all stress related symptoms. Pt is just asking for labs to check for , blood sugar and anemia to be ordered however this landed on a ED disposition. Denies-Severe dizziness, severe chest pain lasting greater than 5 minutes, unilateral weakness/numbness. Guideline recommends ED/UCC/Office. Should pt be seen in ED, office, or take other action? Pt is adamant she cannot come in office for an pt earlier than 10/26/23. Thank you PCP contacted via secure chat for ED disposition consult. Recommendation from provider:No response/sent to ED-Stated she is not going to the ED for these symptoms it's just anxiety. Assessment & Plan (10/09/2023 10:22 AM BATH STEWARD/STEWARDESS): - chronic, uncontrolled/worse - has known anxiety and depression - she was managed by her prior PCP and then referred to psychiatry - saw a provider at [facility] and states she felt worse talking about it so stopped - not on any medications currently, not been on one for over a year - in past has been on Citalopram, Lexparo, Sertraline, Effexor, Vistaril - she did counseling for short term but states did not help - reviewed recent labs - start Venlafaxine 37.5 mg daily and increase to 75 mg daily after 1 month, script sent in - set up f/u in 2 months Lab Results Component Value Date TSH 0.88 11/29/2022 Assessment & Plan (07/11/2022 1:02 PM CDT): - chronic, uncontrolled - has known anxiety and depression - she was managed by her prior PCP and then referred to psychiatry - she did counseling for short term but states did not help - will obtain medications from her pharmacy - obtain labs as ordered No results found for: TSH Moderate episode of recurrent major depressive d isorder 07/11/2022 Assessment & Plan (08/08/2025 5:29 PM BATH STEWARD/STEWARDESS): PHQ-9 score today: 17 Formerly Rx wellbutrin however Dc'ed it due to concerns for insurance coverage in the future Rx today: resume wellbutrin 300mg daily, add PRN Buspirone 5mg TID Mechanism of action side effects explained to patient. RTC in 6 weeks for close follow up Denies suicidal or homicidal ideation at this time. Emergent behavioral health information given including 911 for worsening symptoms Orders: buPROPion XL (WELLBUTRIN XL) 300 mg 24 hr tablet; Take 1 tablet (300 mg total) by mouth every morning Assessment & Plan (03/24/2025 12:48 PM CDT): Assessment & Plan (01/29/2025 9:55 AM CDT): - chronic -not at goal - cont bupropion XL 150 mg daily Orders: buPROPion XL (WELLBUTRIN XL) 150 mg 24 hr tablet; Take 1 tablet (150 mg total) by mouth every morning Assessment & Plan (03/04/2024 6:47 PM CDT): - chronic, poorly controlled - start bupropion XL 150 mg daily Assessment & Plan (10/09/2023 10:22 AM BATH STEWARD/STEWARDESS): - chronic, uncontrolled/worse - has known anxiety and depression - she was managed by her prior PCP and then referred to psychiatry - saw a provider at [facility] and states she felt worse talking about it so stopped - not on any medications currently, not been on one for over a year - in past has been on Citalopram, Lexparo, Sertraline, Effexor, Vistaril - she did counseling for short term but states did not help - reviewed recent labs - start Venlafaxine 37.5 mg daily and increase to 75 mg daily after 1 month, script sent in - set up f/u in 2 months Lab Results Component Value Date TSH 0.88 11/29/2022 Assessment & Plan (07/11/2022 1:02 PM CDT): - chronic, uncontrolled - has known anxiety and depression - she was managed by her prior PCP and then referred to psychiatry - she did counseling for short term but states did not help - will obtain medications from her pharmacy - obtain labs as ordered Morbid obesity with BMI of 50.0-59.9, adult 06/19 Assessment & Plan (10/26/2023 12:14 PM BATH STEWARD/STEWARDESS): Wt Readings from Last 3 Encounters: 10/26/23 (!) 142 kg (313 lb) 10/06/23 (!) 142 kg (313 lb) 09/21/23 (!) 141 kg (310 lb 13.6 oz) Body mass index is 50.54 kg/m . - chronic condition, not at goal - BMI Follow-up includes: nutrition counseling, exercise counseling and education - she has thought about bariatric surgery, also interested in weight loss medication in future - co-morbidities - mood disorder Assessment & Plan (10/09/2023 10:18 AM BATH STEWARD/STEWARDESS): Wt Readings from Last 3 Encounters: 08/23/23 (!) 141.5 kg (312 lb) 06/21/23 (!) 141.5 kg (312 lb) 05/22/23 (!) 145.2 kg (320 lb) Body mass index is 51.92 kg/m . - chronic condition, not at goal - BMI Follow-up includes: nutrition counseling, exercise counseling and education - she has thought about bariatric surgery, also interested in weight loss medication in future - co-morbidities - mood disorder Assessment & Plan (01/05/2023 1:49 PM CDT): Weight reduction, daily exercise and dietary modifications recommended. Long discussion about how weight contributes to low back pain. Patient was encouraged to try to decrease weight, strengthening abdominal muscles. Also talked about mechanics as far as sitting versus standing, patient was told that she would place more pressure on her lower spine by sitting all day. Encouraged her to stand. Also talked about different types of shoes and support to help with her low back pain. Assessment & Plan (11/29/2022 12:59 PM CDT): Wt Readings from Last 3 Encounters: 11/29/22 (!) 145.2 kg (320 lb) 11/22/22 (!) 145.2 kg (320 lb) 08/12/22 (!) 143.8 kg (317 lb) Body mass index is 51.65 kg/m . 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 Overview (12/08/2023): N97.1 - Genital - extra low Added by Interface Trichomoniasis 10/28/2019 Polycystic ovary syndrome 10/28/2019 Bacterial vaginosis 10/28/2019 Human papilloma virus infection 07/21/2019 Carrier of group B Streptococcus 07/21/2019 Heterozygous for MTHFR gene mutation 05/24/2019 Overview (12/08/2023): heterzygous for both the MTHFR C677T and F0203O variants Resolved Problems Problem Noted Date Diagnosed Date Resolved Date Morbid obesity 10/28/2019 02/02/2024 Encounters Date Type Department Care Team Description 08/07/2025 1:30 PM BATH STEWARD/STEWARDESS Office Visit [facility] [address] [place] [address] Aida Jones MD HSV-1 (herpes simplex virus 1) infection (Primary Dx); Genital warts 08/07/2025 9:00 AM BATH STEWARD/STEWARDESS Office Visit [facility] at [address] [place] [address] Ana Orellana NP Dizziness (Primary Dx); BOYD (generalized anxiety disorder); Class 3 severe obesity without serious comorbidity with body mass index (BMI) of 50.0 to 59.9 in adult, unspecified obesity type; Moderate episode of recurrent major depressive disorder (HCC); Dysfunction of both eustachian tubes 08/07/2025 Telephone [facility] at [address] [place] [address] Che Richards MD Medical Question/Miscellaneou s 08/06/2025 Nurse Triage [facility] at [address] [place] [address] Che Richards MD 08/05/2025 [facility] [address] [place] [address] Niesha Patel LPN Oral contraceptive pill surveillance 08/01/2025 Telephone [facility] [address] [place] [address] Aida Jones MD 07/31/2025 Telephone [facility] [address] [facility] [address] [place] [address] Aida Jones MD Patient issue/concern 07/23/2025 8:45 AM BATH STEWARD/STEWARDESS [facility] [address] [place] [address] Aida Jones MD Genital warts (Primary Dx) 07/21/2025 Telephone [facility] [address] [place] [address] Aida Jones MD Appointment Reminder Call 06/25/2025 9:50 AM CDT Procedure visit [facility] [address] [place] [address] Aida Jones MD Genital warts (Primary Dx) 06/04/2025 3:10 PM CDT [facility] [address] [place] [address] Aida Jones MD Genital warts (Primary Dx) 05/16/2025 1:10 PM CDT Procedure visit [facility] [address] [place] [address] Aida Jones MD Genital warts (Primary Dx) 05/16/2025 [facility] [address] [place] [address] Aida Jones MD Medical Question/Miscellaneou s 05/14/2025 Telephone [facility] [place] [address] [place] [address] Che Richards MD Appointment from Last 3 Months Immunizations Immunization Administration Dates Next Due DTaP 02/16/1999, 5,05/27/1994,03/25,01/21/1994 HPV, Bivalent 09/22/2008,05/20/2008,03/19/2008 HPV9 2019,07/22/2019,05/31/2019 Hep A, Adult 01/25/2017,07/27/2016 Hep B, Adolescent or Pediatric 08/15/1994,1993,01/31/1994 Hib (HbOC) 05/27/1994,03/25/1994,01/21/1994 IPV 05/19/1999, 5,03/25/1994,01/21 Influenza, Quadrivalent, Radha l Culture-based MDCK, Preservative Free, Antibiotic Free, Intramuscular 06/15/2022,11/27/2020 Influenza, Quadrivalent, Spl it, Intramuscular 10/30/2015 Influenza, Quadrivalent, Spl it, Preservative Free, Intramuscular 08/23/2021,08/23/2017,07/27/2016 Influenza, Trivalent, IM (MDV) 07/16/2014,2012 Influenza, Unspecified 08/07/2025(Deferr ed: Patient Refused),08/23/2023(Deferred: Patient Refused) MMR 02/16/1999,03/01/1995 Meningococcal B, unspecified 03/19/2008 Tdap 11/13/2018,03/19/2008 Varicella 01/25/2017 Surgical History Surgery Date Site/Laterality Comments TONSILLECTOMY TYMPANOSTOMY TUBE PLACEMENT GALLBLADDER SURGERY Medical History Medical History Date Comments UTI (urinary tract infection) Herpes simplex Depression Anxiety Allergic Sleep difficulties Sleep apnea refused cpap Abnormal Pap smear of cervix 2018 [facility] M, HPV positive Abnormal Pap smear of cervix 2020 [facility], HPV positive. Colposcopy - JOSÉ MIGUEL 1. Abnormal Pap smear of cervix 2021 [facility]. Colposcopy - JOSÉ MIGUEL 1. Pap 2022 - negative. Family History Medical History Relation Name Comments Dementia Father Stroke Father Diabetes Maternal Grandfather Depression Maternal Grandmother Cancer Mother Scleroderma Mother Diabetes Mother's Brother Breast cancer Other Maternal great aunt Diabetes Paternal Grandmother Relation Name Status Comments Father Maternal Grandfather Maternal Grandmother Alive Mother Mother's Brother Alive Other Paternal Grandmother Social History Tobacco Use Types Packs/Day Years Used Date Smoking Tobacco: Never Smokeless Tobacco: Never Tobacco Cessation:Counseling Given: Not Answered Alcohol Use Standard Drinks/Week Comments Yes 0 (1 standard drink = 0.6 oz pur e alcohol) Occasionally AUDIT-C Answer Date Recorded Q1: How often do you have a drink containing alc ohol? Monthly or less 03/25/2025 Q2: How many drinks containi ng alcohol do you have on a typical day when you are drinking? 1 or 2 03/25/2025 Q3: How often do you have si x or more drinks on one occasion? Less than monthly 03/25/2025 PHQ-2 Answer Date Recorded PHQ-2 Total Score (If total score is 3 or more points, staff should administer the PHQ-9) 5 08/07/2025 PHQ-9 Answer Date Recorded PHQ-9 Total Score 17 08/07/2025 Personal Safety Answer Date Recorded Have you ever been in or are you currently in a harmful physical or emotional relationship or is someone making you feel afraid or unsafe? Denies 03/25/2024 Comments No Sex and Gender Information Value Date Recorded Sex Assigned at Not on file Legal Sex Female 8:46 AM BATH STEWARD/STEWARDESS Gender Identity Not on file Sexual Orientation Not on file Occupation Industry Job Start Date Job End Date [employer] Not on file Not on file Not on f ile Obstetrics History Para Term AB IAB SAB Ectopic Multiple Livin g Live Births 2 1 1 1 1 1 1 Date Outcome GA Total Labor Labor/2nd/3rd Weight Sex Type Anes PTL Crystal A1 A5 Name Clin 2010 Term 3.856 kg (8 lb 8 oz) M Vagina l Livin g Complications: Ignacia joel Hypertension 2017 SAB SAB Last Filed Vital Signs Vital Sign Reading Time Taken Comments Blood Pressure 128/78 08/07/2025 1:20 PM BATH STEWARD/STEWARDESS Pulse 99 08/07/2025 8:36 AM BATH STEWARD/STEWARDESS Temperature 36.3 C (97.3 F) 03/25/2025 4:33 PM CDT Respiratory Rate 16 01/29/2025 7:45 AM CDT Oxygen Saturation 97% 08/07/2025 8:55 AM BATH STEWARD/STEWARDESS Inhaled Oxygen Concentration - - Weight 138.3 kg (305 lb) 08/07/2025 1:20 PM BATH STEWARD/STEWARDESS Height 167.6 cm (5' 6) 08/07/2025 8:36 AM BATH STEWARD/STEWARDESS Body Mass Index 49.23 08/07/2025 8:36 AM BATH STEWARD/STEWARDESS Plan of Treatment Health Maintenance Due Date Last Done Comments Varicella Vaccines (2 of 2 - 13+ 2-dose series) 02/22/2017 01/25/2017 Cervical Cancer Screening 01/30/2025 01/31/2024, Covid-19 Vaccine ( season) 2025 06/15/2022, 09/22/2021, 03/23/2021, Additional history exists Influenza Vaccine (#1) 2025 , 08/23/2021, 11/27/2020, Additional history exists Regular Well Visit/Exam 18-64 02/07/2026 02/07/2025, 01/29/2025, 01/31/2024 Depression Screening 08/07/2026 08/07/2025, 08/07/2025, 03/25/2025, Additional history exists DTaP/Tdap/Td Vaccine (8 - Td or Tdap) 11/13/2028 11/13/2018, 03/19/2008, 02/16/1999, Additional history exists Hepatitis B Screening Completed 08/15/1994 , 03/01/1994, 01/31/1994 HPV Vaccines Completed 2019, 12/2018, 05/31/2019, Additional history exists Hepatitis C Screening Completed 02/12/2025 , 02/07/2025, 05/22/2024, Additional history exists Pneumococcal vaccine <65 Aged Out No longer eligible based on patient's age to complete this topic Procedures Procedure Name Priority Date/Time Associated Diagnosis Comments CRYOTHERAPY SKIN LESION Routine 07/23/2025 8:43 AM BATH STEWARD/STEWARDESS Genital warts CRYOTHERAPY SKIN LESION Routine 06/25/2025 10:20 AM CDT Genital warts CRYOTHERAPY SKIN LESION Routine 06/04/2025 3:51 PM CDT Genital warts CRYOTHERAPY SKIN LESION Routine 05/16/2025 1:12 PM CDT Genital warts HEPATITIS C ANTIBODY Routine 02/12/2025 3:13 PM CDT Screening examination for venereal disease HIGH RISK HPV DNA DETECTION WITH GENOTYPING Routine 01/31/2024 3:29 PM CDT Screening for malignant neoplasm of the cervix from Last 3 Months or Most Recently Relevant to Health Maintenance Results * Cryotherapy, skin lesion (07/23/2025 8:43 AM BATH STEWARD/STEWARDESS) Aida Conrad MD - 07/23/2025 8:43 AM BATH STEWARD/STEWARDESS Aida Jones MD 07/23/2025 8:45 AM Cryotherapy, skin lesion Date/Time: 07/23/2025 8:43 AM Performed by: Aida Jones MD Authorized by: Aida Jones MD Consent: Verbal consent obtained Risks and benefits: risks, benefits and alternatives were discussed Consent given by: patient Comments: Right posterior vulva - two condyloma, 3 mm nearly flat. Nitrous oxide applied until white tissue. Treated x 2 rounds. Patient tolerated the procedure well. Follow up as scheduled for routine care or PRN. us Aida Jones MD IN CLINIC/BEDSIDE ORD ERABLES Final Result * Cryotherapy, skin lesion (06/25/2025 10:20 AM CDT) Aida Conrad MD - 06/25/2025 10:20 AM CDT Aida Jones MD 06/25/2025 10:22 AM Cryotherapy, skin lesion Date/Time: 06/25/2025 10:20 AM Performed by: Aida Jones MD Authorized by: Aida Jones MD Consent: Verbal consent obtained Risks and benefits: risks, benefits and alternatives were discussed Comments: Right posterior vulva - two condyloma, 3 mm very minimally raised. Nitrous oxide applied until white tissue. Treated x 2 rounds. Patient tolerated the procedure well. She is scheduled for follow up next month but may cancel if feels lesions have resolved after this round. 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 Nitrous oxide applied until white tissue. Treated x 2 rounds. Patient tolerated the procedure well. Recommend f/u 2 weeks. Aida Jones MD IN CLINIC/BEDSIDE ORD ERABLES Final Result * Cryotherapy, skin lesion (05/16/2025 1:12 PM CDT) Narrative Aida Jones MD - 05/16/2025 1:12 PM CDT Aida Jones MD 05/16/2025 1:30 PM Cryotherapy, skin lesion Date/Time: 05/16/2025 1:12 PM Performed by: Aida Jones MD Authorized by: Aida Jones MD Consent: Verbal consent obtained Risks and benefits: risks, benefits and alternatives were discussed Consent given by: patient Comments: Right posterior vulva - two condyloma, 3-4 mm. Nitrous oxide applied until white tissue. Treated x 2 rounds. Patient tolerated the procedure well. Recommend f/u 2 weeks, which she may move out further based on work schedule. Aida Jones MD IN CLINIC/BEDSIDE ORD ERABLES Final Result * Hepatitis C antibody Blood (02/12/2025 3:13 PM CDT) Hep C Ab Nonreactive Nonreactive Comment: Interpretive Data Nonreactive: Antibodies to HCV not detected. Does NOT exclude the possibility of recent exposure to HCV. Equivocal: Equivocal for HCV antibodies. Supplemental molecular testing will be automatically performed to determine infection status in accordance with current CDC screening recommendations. Reactive: Positive for HCV antibodies. This may represent current or past HCV infection. Supplemental molecular testing will be automatically performed to determine current infection status in accordance with current CDC screening recommendations. Interpretive data was last revised on 2019. Testing performed by: [facility], [address] [place] [address], [place]., [address] Blood 02/12/2025 3:13 PM CDT 02/12/2025 7:47 PM CDT Aida Jones MD LAB MICROBIOLOGY - [facility] ORDERABLES Final Result LONNIE EM[place] ([place]) 1 [facility] [place] [address] * High Risk HPV DNA Detection with Genotyping (Molecular component) (01/31/2024 3:29 PM CDT) HPV HR 16 Not Detected Not Detected [facility] Comment:Testing performed by : [facility], [address] [place]., [address] HPV HR 18 Not Detected Not Detected [place] Comment:Testing performed by : [facility], [address] [place]., [address] HPV HR Non 16/18 Not Detected Not Detected LONNIE DUGAN Comment: Interpretive Data Nucleic acid amplification for detection of high-risk Human Papilloma virus (HPV) is performed by the Jenna Markus 6800 HPV test. This assay specifically detects HPV-16 and HPV-18 genotypes. The following HPV genotypes are detected as high-risk HPV: HPV-31, 33, 35, ,39, 45, 51, 52, 56, 58, 59, 66, and 68. This assay has been approved by the [place] Food and Drug Administration for detection of HPV in cervical specimens collected by a physician using an endocervical brush/spatula or cervical broom and placed in the ThinPrep Pap Test PreservCyt collection containers. The performance characteristics of this test have been verified by the [facility] Molecular Infectious Disease laboratory. Correlate with separately reported cytology results, as applicable. Interpretive data last revised 23 Testing performed by: [facility], [address] [place]., [address] Endocervical 01/31/2024 3:29 PM CDT 02/01/2024 3:29 PM CDT Narrative LONNIE DUGAN - 02/02/2024 2:27 AM CDT Clinical history and diagnosis->DX Z12.4 Z11.3 2020- JOSÉ MIGUEL I Testing type->Screening Last menstrual period (date if known)->12/18/23 Previous negative PAP?->No Aida Jones MD LAB BODY FLUIDS AND S TOOLS ORDERABLES Final Result Performing Organization Address City/State/[place] [address] [address] Department [place] [address] [facility] from Last 3 Months or Most Recently Relevant to Health Maintenance Insurance [facility] Care Teams Chief Airport Guide Relationship Specialty Start Date End Date Che Richards MD [address] [place] [address] [address] PCP - General Family Medicine 01/29/25 [place] [address] [place] [id number] Physician Glue Jointer Operator Obstetrics and Gynecology 11/29/22
--- OUTSIDE RECORDS SUMMARY | 2025-08-13 15:59 | XMS_ITS | Encounter Summary ---
Author Organization [facility] Address [address] [place] [address] Care Team Providers Care Test Hole Driller Name Role Phone Robertodelphine Grecia Cyndy TOBIAS Unavailable [phone] Che Richards MD Primary Care Provide r Reason for Visit * Reason Onset Date Comments Medical Question/Miscellaneous 08/07/2025 Encounter Details Date Type Department Care Team (Late st Contact Info) Description 08/07/2025 Telephone [facility] Primary Care at [address] [place] [address] Che Richards MD [address] [place] [address] [address] [place] [address] Medical Question/Miscellaneous Social History Tobacco Use Types Packs/Day Years [...] on file Legal Sex Female 8:46 AM SEROLOGIST Gender Identity Not on file Sexual Orientation Not on file Occupation Industry Job Start Date Job End Date [employer] Not on file Not on file Not on f ile documented as of this encounter Functional Status * BP Location Answer Date of Assessment Author Right arm 08/07/2025 8:55 AM SEROLOGIST Carlyn [place] * BP Location Answer Date of Assessment Author Right arm 08/07/2025 8:55 AM SEROLOGIST Carlyn [place] documented as of this encounter Miscellaneous Notes * Telephone Encounter - Georgina Nielson - 08/07/2025 10:05 AM CST Medical Question/Miscellaneous Caller???s Concern: Patient called regarding medications sent in by provider from appointment this morning on 08/07/25, AC informed patient per meds tab, patient verbally understood. Does message need to be routed? No LOGIST documented in this encounter Plan of Treatment Not on file documented as of this encounter Visit Diagnoses Not on filedocumented in this encounter Care Teams Test Hole Driller Relationship Specialty Start Date End Date Che Richards MD [address] [place] [address] DR MCKENNA [address] [place] [id number] PCP - General Family Medicine 01/29/25 Grecia Vasques PA [address] [place] [id number] Physician Nut Process Helper Obstetrics and Gynecology 11/29/22 documented as of this encounter
--- OUTSIDE RECORDS SUMMARY | 2025-08-13 15:59 | XMS_ITS | Data Portability ---
Author Organization [facility] Danielito [facility] Address [address] [place] [address] Care Team Providers Care Clay Temperer Name Role Phone PARVEENSCOTTYYesicaDENNISE Oil Sprayer Assessment Encounter Date Assessment Date Assessment LastModified by Organization Details LastModified Time 02/10/2021 02/10/2021 Aida Peralta, RITA flores Not available 02/03/2021 22:06:45 Plan of Treatment Reminders Order Date Submit Date Provider Last Modified By Organization Details Last Modified Time Details Appointments None recorded. Lab pap, IG + reflex HPV 2022 023 MARQU[facility], [address], [place], [address], 3 14:09:55 treponema pallidum IgG + IgM Ab, QL, IA, serum 2022 023 [facility], [address], [address], [place], [address], 3 03:07:39 HBsAg (hepatiti s B surface Ag), EIA, serum 2022 023 [facility], [address], [address], [place], [address], 3 03:07:37 Hepatitis C IgG Ab, qual, serum 2022 023 [facility], [address], [address], [place], [address], 3 03:07:31 HIV 1 + 2, meaningfu l use set 2022 023 [facility], [address], [address], [place], [address], 3 03:07:39 vaginal pathogens panel, ELVIRA+probe , vaginal fluid 2022 023 [facility], [address], [address], [place], [address], 3 07:08:16 HbA1c (hemoglob in A1c), blood 2022 023 [facility], [address], [address], [place], [address], 3 03:07:34 CBC w/ auto diff 2022 023 [facility], [address], [address], [place], [address], 3 20:09:43 CMP, serum or plasma 2022 023 [facility], [address], [address], [place], [address], 3 20:09:43 lh + FSH, serum 2022 023 [facility], [address], [address], [place], [address], 3 03:07:38 prolactin , serum 2022 023 [facility], [address], [address], [place], [address], 3 03:07:36 TSH + free T4, serum 2022 023 [facility], [address], [address], [place], [address], 3 03:07:33 testoster one, total, serum 2022 023 [facility], [address], [address], [place], [address], 3 03:07:35 lipid panel, serum 2022 023 [facility], [address], [address], [place], [address], 3 20:09:42 progester one, serum 2022 023 [facility], [address], [address], [place], [address], 3 03:07:35 estradiol , serum 2022 023 [facility], [address], [address], [place], [address], 3 03:07:37 pap, IG + reflex HPV 2022 023 [facility], [address], [address], [place], [address], 3 03:06:34 pathology study 2021 022 [facility], [address], [address], [place], [address], 2 16:10:01 test, urine 2021 022 [email or web address] 1 In-Office Order, Internal Use Only DO Not Attach Compendium DO Not Attach Compendium, Do Not Delete/merge, [id number] 2 13:37:41 pap, IG + reflex HPV 2021 022 [email or web address] [id number] [facility], [address], [address], [place], [address], 3 03:37:09 bacterial vaginosis score, ELVIRA+probe , vaginal fluid (OBS) 2021 022 [id number]_[id number] [facility], [address], [address], [place], [address], 3 03:37:09 test, urine 2021 022 [email or web address] 1 In-Office Order, Internal Use Only DO Not Attach Compendium DO Not Attach Compendium, Do Not Delete/merge, [id number] 2 13:43:12 pathology study 2020 021 TAYO [facility], [address], [address], [place], [address], 1 14:11:44 urinalysi s, dipstick 2020 021 [email or web address] In-Office Order, Internal Use Only DO Not Attach Compendium DO Not Attach Compendium, Do Not Delete/merge, [id number] 19:38:45 Referral None recorded. Procedures colposcop y with biopsy and endocervi tim curettage (PROC) 2021 022 [email or web address] 1 Not available 2 13:23:02 Surgeries None recorded. Imaging None recorded. Medication Orders Fe 24 1 mg-20 mcg (24)/75 mg (4) tablet 2022 023 [email or web address] 1 [facility] #[id number], [address], [place], [place], [id number], 3 16:56:34 Februaryl Fe 24 1 mg-20 mcg (24)/75 mg (4) tablet 2021 022 MARQUETTE [facility] #[id number], [address], [place], [place], [id number], 13:23:09 Slynd 4 mg (28) tablet 2021 022 [email or web address] 1 [id number], [address], [place], [place], [id number], 13:23:11 Patient TargetsNo targets recorded. Patient Instructions Encounter Date Encounter Id Patient Instructions Last Modified By Organization Details Last Modified Time 02/10/2021 [id number] When You Want to Lose Weight: Care Instructions [email or web address] Not available 02/10/2021 13:39:48 10/28/2021 [id number] Well Visit, Ages 18 to 65: Care Instructions Not available 10/28/2021 13:43:13 04/07/2022 [id number] human papillomavirus (HPV): care instructions Not available 04/07/2022 13:27:33 colposcopy: what to expect at home Not available 04/07/2022 13:23:02 09/29/2022 [id number] RITA Matute Discussed with Radha Vasques PA-C Not available 09/29/2022 14:49:28 03/09/2023 [id number] Well Visit, Ages 18 to 65: Care Instructions Not available 03/09/2023 11:14:22 safer sex: care instructions Not available 03/09/2023 11:14:21 A healthy lifestyle: care instructions Not available 03/09/2023 11:14:21 Reason for Referral None Reported. Results Created Date Observation Date Name Description Value Unit Range Abnormal Flag Note LastModifiedBy Organization Detail LastModifiedTime 02/11/2002/10/2021 urina lysis , dipst ick Leukocytes Small Not Available In-Offi ce Order Internal Use Only DO Not Attach Compendium DO Not Attach Compendium, Do Not Delete/merge, [id number] 02/10/2021 14:40:12 02/11/2002/10/2021 urina lysis , dipst ick Nitrite negati ve Not Available In-Office Order Internal Use Only DO Not Attach Compendium DO Not Attach Compendium, Do Not Delete/merge, 02/10/2021 14:40:12 02/11/2002/10/2021 urina lysis , dipst ick Urobilinogen .2 Not Available In-Of fice Order Internal Use Only DO Not Attach Compendium DO Not Attach Compendium, Do Not Delete/merge, 02/10/2021 14:40:12 02/11/20 21 02/10/2021 urina lysis , dipst ick Protein Negati ve Not Available In-Office Order Internal Use Only DO Not Attach Compendium DO Not Attach Compendium, Do Not Delete/merge, 02/10/2021 14:40:12 02/11/20 21 02/10/2021 urina lysis , dipst ick pH 6.0 Not Available In-Office Order Internal Use Only DO Not Attach Compendium DO Not Attach Compendium, Do Not Delete/merge, 02/10/2021 14:40:12 02/11/2002/10/2021 urina lysis , dipst ick Blood Negati ve Not Available In-Office Order Internal Use Only DO Not Attach Compendium DO Not Attach Compendium, Do Not Delete/merge, 02/10/2021 14:40:12 02/11/20 21 02/10/2021 urina lysis , dipst ick Specific [place] 1.025 Not Available In-Off ice Order Internal Use Only DO Not Attach Compendium DO Not Attach Compendium, Do Not Delete/merge, 02/10/2021 14:40:12 02/11/20 21 02/10/2021 urina lysis , dipst ick Ketone Negati ve Not Available In-Office Order Internal Use Only DO Not Attach Compendium DO Not Attach Compendium, Do Not Delete/merge, 02/10/2021 14:40:12 02/11/20 21 02/10/2021 urina lysis , dipst ick Bilirubin Negati ve Not Available In-Office Order Internal Use Only DO Not Attach Compendium DO Not Attach Compendium, Do Not Delete/merge, [id number] 02/10/2021 14:40:12 02/11/20 21 02/10/2021 urina lysis , dipst ick Glucose Negati ve Not Available In-Office Order Internal Use Only DO Not Attach Compendium DO Not Attach Compendium, Do Not Delete/merge, [facility] 02/10/2021 14:40:12 01/27/20 21 01/26/2021 pregn jan test, urine HCG negati ve Not Available In-Office Order Internal Use Only DO Not Attach Compendium DO Not Attach Compendium, Do Not Delete/merge, [facility] 01/26/2021 12:13:04 01/27/20 21 01/26/2021 urina lysis , dipst ick Leukocytes Large Not Available In-Offi ce Order Internal Use Only DO Not Attach Compendium DO Not Attach Compendium, Do Not Delete/merge, [facility] 01/26/2021 12:12:08 01/27/20 21 01/26/2021 urina lysis , dipst ick Nitrite negati ve Not Available In-Office Order Internal Use Only DO Not Attach Compendium DO Not Attach Compendium, Do Not Delete/merge, [facility] 01/26/2021 12:12:08 01/27/20 21 01/26/2021 urina lysis , dipst ick Urobilinogen .2 Not Available In-Of fice Order Internal Use Only DO Not Attach Compendium DO Not Attach Compendium, Do Not Delete/merge, [facility] 01/26/2021 12:12:08 01/27/20 21 01/26/2021 urina lysis , dipst ick Protein Negati ve Not Available In-Office Order Internal Use Only DO Not Attach Compendium DO Not Attach Compendium, Do Not Delete/merge, [facility] 01/26/2021 12:12:08 01/27/20 21 01/26/2021 urina lysis , dipst ick pH 6.0 Not Available In-Office Order Internal Use Only DO Not Attach Compendium DO Not Attach Compendium, Do Not Delete/merge, [facility] 01/26/2021 12:12:08 01/27/20 21 01/26/2021 urina lysis , dipst ick Blood Non-He molyze d: Trace Not Available In-Office Order Internal Use Only DO Not Attach Compendium DO Not Attach Compendium, Do Not Delete/merge, [facility] 01/26/2021 12:12:08 01/27/2001/26/2021 urina lysis , dipst ick Specific [place] 1.020 Not Available In-Off ice Order Internal Use Only DO Not Attach Compendium DO Not Attach Compendium, Do Not Delete/merge, [facility] 01/26/2021 12:12:08 01/27/20 21 01/26/2021 urina lysis , dipst ick Ketone Negati ve Not Available In-Office Order Internal Use Only DO Not Attach Compendium DO Not Attach Compendium, Do Not Delete/merge, [facility] 01/26/2021 12:12:08 01/27/20 21 01/26/2021 urina lysis , dipst ick Bilirubin Negati ve Not Available In-Office Order Internal Use Only DO Not Attach Compendium DO Not Attach Compendium, Do Not Delete/merge, [facility] 01/26/2021 12:12:08 01/27/20 21 01/26/2021 urina lysis , dipst ick Glucose Negati ve Not Available In-Office Order Internal Use Only DO Not Attach Compendium DO Not Attach Compendium, Do Not Delete/merge, [facility] 01/26/2021 12:12:08 01/27/2001/27/2021 pap, IG + HPV, cervi tim HPV aptima POSITI VE negati ve abnormal This nucle ic acid ampli ficat ion test detec ts fourt een high- risk HPV types (16,1 8,31, 33,35 ,39,4 5,51, 52,56 ,58,5 9,66, 68) witho ut diffe renti ation . Not Available [facility] ([facility]) [address], [place], [address], 01/28/2021 20:08:59 01/27/20 21 01/28/2021 pap, IG + HPV, cervi tim diagnosis: COMMEN T abnormal EPITH ELIAL CELL ABNOR MALIT Y. HIGH- GRADE SQUAM OUS INTRA EPITH ELIAL LESIO N (HSIL ). Not Available [facility] ([facility]) [address] [place], [address], 01/28/2021 20:08:59 01/27/20 21 01/28/2021 pap, IG + HPV, cervi tim recommendati on: ADARSH Key abnormal Sugge st follo w up as clini makayla appro priat e. Not Available [facility] ([facility]) [address] [facility], [place], [address], 01/28/2021 20:08:59 01/27/20 21 01/28/2021 pap, IG + HPV, cervi tim specimen adequacy: ADARSH Key Satis facto ry for evalu ation . Endoc ervic al and/o r squam ous metap lasti c cells (endo cervi tim compo nent) are prese nt. Not Available [facility] ([facility]) [address] [facility], [place], [address], 01/28/2021 20:08:59 01/27/20 21 01/28/2021 pap, IG + HPV, cervi tim clinician provided ICD10: ADARSH Key Z01.4 19 Z11.5 1 Not Available [facility] ([facility]) [address] [place], [address], 01/28/2021 20:08:59 01/27/20 21 01/28/2021 pap, IG + HPV, cervi tim performed by: ADARSH pierre Pushk in, Cytot echno poli t (ASCP ) Not Available [facility] ([facility]) [address] [place], [address], 01/28/2021 20:08:59 01/27/20 21 01/28/2021 pap, IG + HPV, cervi tim electronical ly signed by: ADARSH carrillo MD, Patho logis t Not Available [facility] ([facility]) [address] [place], [address], 01/28/2021 20:08:59 01/27/20 21 01/28/2021 pap, IG + HPV, cervi tim . . Not Available [facility] ([facility]) [address] [place], [address], 01/28/2021 20:08:59 01/27/20 21 01/28/2021 pap, IG + HPV, cervi tim pathologist provided ICD10: ADARSH Key R87.6 13 Not Available [facility] ([facility]) [address] [place], [address], 01/28/2021 20:08:59 01/27/20 21 01/28/2021 pap, IG + HPV, cervi tim note: ADARSH Key The Pap smear is a scree tru test desig bassam to aid in the detec tion of douglas ligna nt and malig nant condi tions of the uteri ne cervi x. It is not a diagn ostic proce dure and shoul d not be used as the sole means of detec ting cervi tim cance r. Both false -posi tive and false -nega tive repor ts do occur . Not Available [facility] ([facility]) [address] [place], [address], 01/28/2021 20:08:59 01/27/20 21 01/28/2021 pap, IG + HPV, cervi tim test methodology: ADARSH Key This liqui d based ThinP rep(R ) pap test was scree bassam with the use of an image guide d syste m. Not Available [facility] ([facility]) [address] [place], [address], 01/28/2021 20:08:59 01/27/20 21 01/29/2021 bacte rial vagin osis panel , vagin al atopobium vaginae LOW - 0 score Not Available [facility] ([facility]) [address] [place], [address], 01/31/2021 20:07:30 01/27/20 21 01/29/2021 bacte rial vagin osis panel , vagin al bvab 2 LOW - 0 score Not Available [facility] ([facility]) [address] [place], [address], 01/31/2021 20:07:30 01/27/20 21 01/29/2021 bacte rial vagin osis panel , vagin al megasphaera 1 LOW - 0 score Calcu late total score by tahira moody the 3 indiv idual bacte rial vagin osis (BV) marke r score s toget her. Total score is inter prete d as follo ws: Total score 0-1: Indic ates the absen ce of BV. Total score 2: Indet ermin ate for BV. Addit ional clini tim data shoul d be evalu ated to estab arun a diagn osis. Total score 3-6: Indic ates the prese nce of BV. This test was devel oped and its perfo rmanc e mayo cteri stics deter mined by [facility]. It has not been clear ed or appro wendy by the Food and Drug Admin istra tion. Not Available [facility] ([facility]) [address] [place], [address], 01/31/2021 20:07:30 01/27/20 21 01/29/2021 bacte rial vagin osis panel , vagin al cindy albicans, ELVIRA NEGATI VE negati ve Not Available [facility] ([facility]) [address] [place], [address], 01/31/2021 20:07:30 01/27/20 21 01/29/2021 bacte rial vagin osis panel , vagin al cindy glabrata, ELVIRA NEGATI VE negati ve Not Available [facility] ([facility]) [address] [place], [address], 01/31/2021 20:07:30 01/27/20 21 01/29/2021 bacte rial vagin osis panel , vagin al trich vag by ELVIRA NEGATI VE negati ve Not Available [facility] ([facility]) [address] [place], [address], 01/31/2021 20:07:30 01/27/20 21 01/29/2021 bacte rial vagin osis panel , vagin al chlamydia trachomatis, ELVIRA NEGATI VE negati ve Not Available [facility] ([facility]) [address] [place], [address], 01/31/2021 20:07:30 01/27/20 21 01/29/2021 bacte rial vagin osis panel , vagin al neisseria gonorrhoeae, ELVIRA NEGATI VE negati ve Not Available [facility] ([facility]) [address] [place], [address], 01/31/2021 20:07:30 01/27/20 21 01/31/2021 bacte rial vagin osis panel , vagin al hsv 1 ELVIRA NEGATI VE negati ve Not Available [facility] ([facility]) [address] [place], [address], 01/31/2021 20:07:30 01/27/20 21 01/31/2021 bacte rial vagin osis panel , vagin al hsv 2 ELVIRA NEGATI VE negati ve Not Available [facility] ([facility]) [address] [place], [address], 01/31/2021 20:07:30 01/27/20 21 01/28/2021 cultu re, vagin al/re ctal, strep tococ cus group B strep gp B ELVIRA NEGATI VE negati ve Cente rs for Disea se Contr ol and Preve ntion (CDC) and Ameri can Congr ess of Obste trici ans and Gynec ologi sts (ACOG ) guide lines for preve ntion of perin atal group B strep tococ tim (GBS) disea se speci fy co-co llect ion of a vagin al and recta l swab speci men to maxim ize sensi tivit y of GBS detec tion. Per the CDC and ACOG, swabb ing both the lower vagin a and rectu m subst antia lly incre ases the yield of detec tion zaheer red with sampl ing the vagin a alone . Penic illin G, ampic illin , or cefaz tiburcio are indic ated for intra partu m proph ylaxi s of perin atal GBS colon izati on. Refle x susce ptibi lity testi ng shoul d be perfo rmed prior to use of clind amyci n only on GBS isola harmony from penic illin -treasure rgic women who are consi dered a high risk for anaph ylaxi s. Treat ment with vanco mycin witho ut addit ional testi ng is warra nted if resis tance to clind amyci n is noted . Not Available [facility] ([facility]) [address] [place], [address], 01/31/2021 20:07:31 02/11/20 21 02/17/2021 patho logy study . Commen t Mater ial submi tted: . PART A: cervi x - CERVI TIM BIOPS Y PART B: endoc ervix - ENDOC ERVIC AL CURET TAGE Not Available [facility] ([facility]) [address] [place], [address], 02/17/2021 14:11:44 02/11/20 21 02/17/2021 patho logy study . Commen t Clini tim histo ry: . R87.6 13 Not Available [facility] ([facility]) [address] [place], [address], 02/17/2021 14:11:44 02/11/20 21 02/17/2021 patho logy study . Commen t Diagn osis: Part A: CERVI TIM BIOPS Y: P16-P OSITI VE LOW-G RADE SQUAM OUS INTRA EPITH ELIAL LESIO N (HARVINDER 1), SEE COMME NT. MULTI PLE SERIA L SECTI ONS HAVE BEEN EXAMI BASSAM. Part B: ENDOC ERVIC AL CURET TAGE: MINUT E DETAC HED FRAGM ENT WITH KOILO CYTOS IS CONSI STENT WITH HUMAN PAPIL LOMAV IRUS (HPV) EFFEC T. SCANT BENIG N ENDOC ERVIC AL TISSU E. MULTI PLE SERIA L SECTI ONS HAVE BEEN EXAMI BASSAM. COMME NT: FINDI NGS CORRE LATE WITH PATIE NT HISTO RY OF ABNOR MAL PAP SMEAR . AN IMMUN OHIST OCHEM ICAL STAIN FOR P16 (E6H4 , IVD) SHOWS POSIT TORRES STAIN ING ASSOC IATED WITH MORPH OLOGI C FEATU RES MOST CONSI STENT WITH LOW GRADE DYSPL KAY. THE CLINI TIM SIGNI FICAN CE OF P16-P OSITI VE LOW GRADE DYSPL KAY IS UNCLE AR. CLOSE CLINI TIM FOLLO W UP IS RECOM VIVIANA D. Note: Some tests use Mariya te Speci fic Reage nts (ASRs ). This test was devel oped and its perfo rmanc e mayo cteri stics deter mined by [employer] [facility]. It has not been clear ed or appro wendy by the U.S. Food and Drug Admin istra tion. The FDA has deter mined that such clear ance or appro mary is not neces digna. This test is used for clini tim purpo ses. It shoul d not be regar ded as inves tigat ional or for resea rch. IHC techn ical perfo rming locat ion is [facility], [address], [place] , [place]. Contr ol slide accep table . IDS 02/17 1407 Local Not Available [facility] ([facility]) [address] [facility], [place], [address], 02/17/2021 14:11:44 02/11/20 21 02/17/2021 patho logy study . Commen t Leeanne harris d: . Kwame Rodriguez MD, Patho logis t Not Available [facility] ([facility]) [address] [facility], [place], [address], 02/17/2021 14:11:44 02/11/2002/17/2021 patho logy study . Commkatelyn t Gross descr iptio n: . 2 Conta iners , forma donovan-f illed , label ed with patie nt ident ifica tion. Part A: CERVI TIM BIOPS Y: MULTI PLE FRAGM ENT(S ) OF MUCUS AND SOFT MATER IAL MEASU RING 1.7 X 0.4 X 0.3 CM IN AGGRE GATE. FILTE RED AND SUBMI TTED IN CASSE TTE(S ) A1. Part B: ENDOC ERVIC AL CURET TAGE: MULTI PLE FRAGM ENT(S ) OF SOFT MATER IAL, BLOOD , AND MUCUS MEASU RING 6.0 X 3.0 X 0.3 CM IN AGGRE GATE. FILTE RED AND SUBMI TTED IN CASSE TTE(S ) B1-B5 . CYS/C YS 02/11 1059 Local Not Available [facility] ([facility]) [address] [facility], [place], [address], 02/17/2021 14:11:44 02/11/2002/17/2021 patho logy study . Commen t Patho logis t provi ded ICD-1 0: N87.0 , N85.9 , B97.7 Not Available [facility] ([facility]) [address] [facility], [place], [address], 02/17/2021 14:11:44 02/11/20 21 02/17/2021 patho logy study . Commen t CPT . 16901 1, 89092 2, W2006 1 Not Available [facility] ([facility]) [address] [facility], [place], [address], 02/17/2021 14:11:44 10/28/19 22 11/01/2021 NUSWA B VG+, HSV atopobium vaginae LOW - 0 score Not Available [facility] ([facility]) [address] [facility], [place], [address], 11/02/2021 14:15:06 10/28/19 22 11/01/2021 NUSWA B VG+, HSV bvab 2 LOW - 0 score Not Available [facility] ([facility]) [address] [facility], [place], [address], 11/02/2021 14:15:06 10/28/19 22 11/01/2021 NUSWA B VG+, HSV megasphaera 1 LOW - 0 score Calcu late total score by tahira moody the 3 indiv idual bacte rial vagin osis (BV) marke r score s toget her. Total score is inter prete d as follo ws: Total score 0-1: Indic ates the absen ce of BV. Total score 2: Indet ermin ate for BV. Addit ional clini tim data shoul d be evalu ated to estab arun a diagn osis. Total score 3-6: Indic ates the prese nce of BV. This test was devel oped and its perfo rmanc e mayo cteri stics deter mined by [facility]. It has not been clear ed or appro wendy by the Food and Drug Admin istra tion. Not Available [facility] ([facility]) [address] [facility], [place], [address], 11/02/2021 14:15:06 10/28/19 22 11/01/2021 NUSWA B VG+, HSV cindy albicans, ELVIRA NEGATI VE negati ve Not Available [facility] ([facility]) [address] [facility], [place], [address], 11/02/2021 14:15:06 10/28/19 22 11/01/2021 NUSWA B VG+, HSV cindy glabrata, ELVIRA NEGATI VE negati ve Not Available [facility] ([facility]) [address] [facility], [place], [address], 11/02/2021 14:15:06 10/28/19 22 11/01/2021 NUSWA B VG+, HSV trich vag by ELVIRA NEGATI VE negati ve Not Available [facility] ([facility]) [address] [place], [address], 11/02/2021 14:15:06 10/28/19 22 11/01/2021 NUA B VG+, HSV chlamydia trachomatis, ELVIRA NEGATI VE negati ve Not Available [facility] ([facility]) [address] [place], [address], 11/02/2021 14:15:06 10/28/19 22 11/01/2021 NUSWA B VG+, HSV neisseria gonorrhoeae, ELVIRA NEGATI VE negati ve Not Available [facility] ([facility]) [address] [place], [address], 11/02/2021 14:15:06 10/28/19 22 11/02/2021 NUSWA B VG+, HSV hsv 1 ELVIRA NEGATI VE negati ve Not Available [facility] ([facility]) [address] [place], [address], 11/02/2021 14:15:06 10/28/19 22 11/02/2021 NUSWA B VG+, HSV hsv 2 ELVIRA NEGATI VE negati ve Not Available [facility] ([facility]) [address] [place], [address], 11/02/2021 14:15:06 10/28/19 22 10/29/2021 IGP,A PTIMA HPV,A GE GDLN age gdln acog testing 19- Not Available [facility]) [address] [place], [address], 11/03/2021 16:13:45 10/28/19 22 11/03/2021 IGP,A PTIMA HPV,A GE GDLN diagnosis: ADARSH Key abnormal EPITH ELIAL CELL ABNOR MALIT Y. LOW GRADE SQUAM OUS INTRA EPITH ELIAL LESIO N (LSIL ). Not Available [facility] ([facility]) [address] [place], [address], 11/03/2021 16:13:45 10/28/19 22 11/03/2021 IGP,A PTIMA HPV,A GE GDLN specimen adequacy: ADARSH Key Satis facto ry for evalu ation . Endoc ervic al and/o r squam ous metap lasti c cells (endo cervi tim compo nent) are prese nt. Not Available [facility] ([facility]) [address] [place], [address], 11/03/2021 16:13:45 10/28/19 22 11/03/2021 IGP,A PTIMA HPV,A GE GDLN clinician provided ICD10: ADARSH Key Z01.4 19 Not Available [facility] ([facility]) [address] [place], [address], 11/03/2021 16:13:45 10/28/19 22 11/03/2021 IGP,A PTIMA HPV,A GE GDLN performed by: ADARSH Fernandez on, Cytot echno poli t (ASCP ) Not Available [facility] ([facility]) [address] [place], [address], 11/03/2021 16:13:45 02/10/20 22 11/03/2021 IGP,A PTIMA HPV,A GE GDLN electronical ly signed by: ADARSH carrillo MD, Patho poli t Not Available [facility] Lab) [address] [place], [address], 11/03/2021 16:13:45 10/28/19 22 11/03/2021 IGP,A PTIMA HPV,A GE GDLN . . Not Available [facility] ([facility]) [address] [place], [address], 11/03/2021 16:13:45 10/28/19 22 11/03/2021 IGP,A PTIMA HPV,A GE GDLN pathologist provided ICD10: ADARSH Key R87.6 12 Not Available [facility] ([facility]) [address] [place], [address], 11/03/2021 16:13:45 10/28/19 22 11/03/2021 IGP,A PTIMA HPV,A GE GDLN note: ADARSH Key The Pap smear is a scree tru test desig bassam to aid in the detec tion of douglas ligna nt and malig nant condi tions of the uteri ne cervi x. It is not a diagn ostic proce dure and shoul d not be used as the sole means of detec ting cervi tim cance r. Both false -posi tive and false -nega tive repor ts do occur . Not Available [facility] ([facility]) [address] [place], [address], 11/03/2021 16:13:45 10/28/19 22 11/03/2021 IGP,A PTIMA HPV,A GE GDLN test methodology: ADARSH Key This liqui d based ThinP rep(R ) pap test was scree bassam with the use of an image guide davie systgabby m. Not Available [facility] ([facility]) [address] [place], [address], 11/03/2021 16:13:45 10/28/19 22 11/03/2021 IGP,A PTIMA HPV,A GE GDLN . COMMEN T The HPV DNA refle x crite arturo were not met with this speci men resul t there fore, no HPV testi ng was perfo rmed. Not Available [facility] ([facility]) [address] [facility], [place], [address], 11/03/2021 16:13:45 10/28/19 22 10/28/2021 pregn jan test, urine HCG negati ve Not Available In-Office Order Internal Use Only DO Not Attach Compendium DO Not Attach Compendium, Do Not Delete/merge, [id number] 10/28/2021 12:34:43 04/07/20 22 04/11/2022 PATHO LOGY REPOR T . Commen t Mater ial submi tted: . PART A: cervi x - CERVI TIM BIOPS Y PART B: endoc ervix - ENDOC ERVIC AL CURET TAGE Not Available [facility] ([facility]) [address] [facility], [place], [address], 04/11/2022 16:10:01 04/07/20 22 04/11/2022 PATHO LOGY REPOR T . Commen t Diagn osis: Part A: CERVI TIM BIOPS Y: LOW-G RADE SQUAM OUS INTRA EPITH ELIAL LESIO N (HARVINDER 1). ACUTE AND CHRON IC CERVI CITIS . Part B: ENDOC ERVIC AL CURET TAGE: MINUT E FRAGM ENTS OF BENIG N ENDOC ERVIC AL GLAND S, SQUAM OUS EPITH ELIUM , SQUAM OUS METAP LASIA , INFLA MMATI ON, AND MUCUS . CDE 04/11 1435 Local Not Available [facility] ([facility]) [address] [facility], [place], [address], 04/11/2022 16:10:01 04/07/20 22 04/11/2022 PATHO LOGY REPOR T . Commen t Elect leigh harris d: . Ashanti fernandez MD, Patho logis t Not Available [facility] ([facility]) [address] [facility], [place], [address], 04/11/2022 16:10:01 04/07/20 22 04/11/2022 PATHO LOGY REPOR T . Commen t Gross descr iptio n: . 2 Conta iners , forma donovan-f illed , label ed with patie nt ident ifica tion. Part A: CERVI TIM BIOPS Y: 2 FRAGM ENT(S ) OF HAN MUCOI D TISSU E MEASU RING 0.4 X 0.2 X 0.1 CM. SUBMI TTED RECEI WENDY IN CASSE TTE(S ) A1. Part B: ENDOC ERVIC AL CURET TAGE: SCANT FRAGM ENT(S ) OF MUCUS AND SOFT MATER IAL MEASU RING 3.0 X 0.3 X 0.1 CM IN AGGRE GATE. FILTE RED AND SUBMI TTED IN CASSE TTE(S ) B1. /D RA 04/08 1405 Local Not Available [facility] ([facility]) [address] [facility], [place], [address], 04/11/2022 16:10:01 04/07/20 22 04/11/2022 PATHO LOGY REPOR T . Commen t Patho logis t provi ded ICD-1 0: N72, N87.0 Not Available [facility] ([facility]) [address] [facility], [place], [address], 04/11/2022 16:10:01 04/07/20 22 04/11/2022 PATHO [place] CONCEPCION Fawad Karin key CPT . [address] 1, 11091 2 Not Available [facility] ([facility]) [address] [facility], [place], [address], 04/11/2022 16:10:01 04/07/20 22 04/07/2022 pregn jan test, urine HCG negati ve Not Available In-Office Order Internal Use Only DO Not Attach Compendium DO Not Attach Compendium, Do Not Delete/merge, [id number] 04/07/2022 13:37:34 03/09/20 23 03/09/2023 LIPID PANEL cholesterol, total 216.9 mg/dL 140.0- 200.0 above high normal Not Available [facility] Department [address] [place] [address], [address], 03/09/2023 20:09:42 03/09/20 23 03/09/2023 LIPID PANEL triglyceride s 221 mg/dL <=150 above high normal Not Available [facility] Department [address] [place] [address], [address], 03/09/2023 20:09:42 03/09/20 23 03/09/2023 LIPID PANEL HDL cholesterol 48.9 mg/dL 40.0-1 00.0 Not Available [facility] Department [address] [place] [address], [address], 03/09/2023 20:09:42 03/09/20 23 03/09/2023 LIPID PANEL VLDL cholesterol tim 44.20 mg/dL 5.00-4 0.00 above high normal Not Available [facility] Department [address] [place] [address], [address], 03/09/2023 20:09:42 03/09/20 23 03/09/2023 LIPID PANEL LDL chol calc ([facility]) 128.9 mg/dL 0.0-99 .0 above high normal Not Available [facility] Department [address] [place], [address], 03/09/2023 20:09:42 03/09/20 23 03/09/2023 COMP. METAB OLIC PANEL (14) glucose 104 mg/dL 65-99 above high normal ANION GP 19.0 mmol/ L N OSMOL 279.0 mOsM/ L N REFER ENCE RANGE : 275.0 -301. 0 Not Available [facility] Department [address] [place], [address], 03/09/2023 20:09:43 03/09/20 23 03/09/2023 COMP. METAB OLIC PANEL (14) BUN 11 mg/dL 8-26 Not Available [facility] Department [address] [place] [address], [address], 03/09/2023 20:09:43 03/09/20 23 03/09/2023 COMP. METAB OLIC PANEL (14) creatinine 0.65 mg/dL 0.50-1 .40 Not Available [facility] Department [address] [place], [address], 03/09/2023 20:09:43 03/09/20 23 03/09/2023 COMP. METAB OLIC PANEL (14) eGFR 122 mL/mi n/1.7 3 >=60 Not Available [facility] Department [address] [place], [address], 03/09/2023 20:09:43 03/09/20 23 03/09/2023 COMP. METAB OLIC PANEL (14) BUN/creatini ne ratio 16.6 Not Available [facility] Department [address] [place], [address], 03/09/2023 20:09:43 03/09/20 23 03/09/2023 COMP. METAB OLIC PANEL (14) sodium 140.0 mmol/ L 136.0- 144.0 Not Available [facility] Department [address] [place] [address], [address], 03/09/2023 20:09:43 03/09/20 23 03/09/2023 COMP. METAB OLIC PANEL (14) potassium 4.5 mmol/ L 3.5-5. 3 Not Available [facility] Department [address] [place], [address], 03/09/2023 20:09:43 03/09/20 23 03/09/2023 COMP. METAB OLIC PANEL (14) chloride 102 mmol/ l 101-11 1 Not Available [facility] Department [address] [place], [address], 03/09/2023 20:09:43 03/09/20 23 03/09/2023 COMP. METAB OLIC PANEL (14) carbon dioxide, total 23.5 mmol/ L 21.0-3 2.0 Not Available [facility] Department [address] [place], [address], 03/09/2023 20:09:43 03/09/20 23 03/09/2023 COMP. METAB OLIC PANEL (14) calcium 9.7 mg/dL 8.2-10 .0 Not Available [facility] Department [address] [place], [address], 03/09/2023 20:09:43 03/09/20 23 03/09/2023 COMP. METAB OLIC PANEL (14) protein, total 6.9 g/dL 6.7-8. 2 Not Available [facility] Department [address] [place], [address], 03/09/2023 20:09:43 03/09/20 23 03/09/2023 COMP. METAB OLIC PANEL (14) albumin 4.0 g/dL 3.5-5. 5 Not Available [facility] Department [address] [place], [address], 03/09/2023 20:09:43 03/09/20 23 03/09/2023 COMP. METAB OLIC PANEL (14) globulin, total 2.9 g/dL 1.5-4. 5 Not Available [facility] Department [address] [place] [address], [address], 03/09/2023 20:09:43 03/09/20 23 03/09/2023 COMP. METAB OLIC PANEL (14) A/G ratio 1.4 Not Available [facility] Department [address] [place] [address], [address], 03/09/2023 20:09:43 03/09/20 23 03/09/2023 COMP. METAB OLIC PANEL (14) bilirubin, total 0.3 mg/dL 0.0-1. 2 Not Available [facility] Department [address] [place] [address], [address], 03/09/2023 20:09:43 03/09/20 23 03/09/2023 COMP. METAB OLIC PANEL (14) alkaline phosphatase 81.5 IU/L 42.0-1 21.0 Not Available [facility] Department [address] [place] [address], [address], 03/09/2023 20:09:43 03/09/20 23 03/09/2023 COMP. METAB OLIC PANEL (14) AST (SGOT) 15.0 U/L 10.0-4 2.0 Not Available [facility] Department [address] [place] [address], [address], 03/09/2023 20:09:43 03/09/20 23 03/09/2023 COMP. METAB OLIC PANEL (14) ALT (SGPT) 13.5 U/L 10.0-6 0.0 Not Available [facility] Department [address] [place] [address], [address], 03/09/2023 20:09:43 03/09/20 23 03/09/2023 CBC WITH DIFFE RENTI AL/PL ATELE T WBC 8.8 K/uL 3.4-10 .8 Not Available [facility] Department [address] [place], [address], 03/09/2023 20:09:43 03/09/20 23 03/09/2023 CBC WITH DIFFE RENTI AL/PL ATELE T RBC 4.5 M/uL 4.2-5. 4 Not Available [facility] Department [address] [place], [address], 03/09/2023 20:09:43 03/09/20 23 03/09/2023 CBC WITH DIFFE RENTI AL/PL ATELE T hemoglobin 13.0 g/dL 11.5-1 5.5 Not Available [facility] Department [address] [place], [address], 03/09/2023 20:09:43 03/09/20 23 03/09/2023 CBC WITH DIFFE RENTI AL/PL ATELE T hematocrit 40.1 % 36.0-4 8.0 Not Available [facility] Department [address] [place], [address], 03/09/2023 20:09:43 03/09/20 23 03/09/2023 CBC WITH DIFFE RENTI AL/PL ATELE T MCV 89 fL 80-95 Not Available [facility] Department [address] [place], [address], 03/09/2023 20:09:43 03/09/20 23 03/09/2023 CBC WITH DIFFE RENTI AL/PL ATELE T MCH 29 pg 27-32 Not Available [facility] Department [address] [place], [address], 03/09/2023 20:09:43 03/09/20 23 03/09/2023 CBC WITH DIFFE RENTI AL/PL ATELE T MCHC 32 g/dL 32-36 Not Available [facility] Department [address] [place], [address], 03/09/2023 20:09:43 03/09/20 23 03/09/2023 CBC WITH DIFFE RENTI AL/PL ATELE T RDW 13.3 % 11.5-1 4.5 Not Available [facility] Department [address] [place], [address], 03/09/2023 20:09:43 03/09/20 23 03/09/2023 CBC WITH DIFFE RENTI AL/PL ATELE T platelets 256 K/uL 155-37 9 MPV 10.8 FL 8.9-1 2.7 N Not Available [facility] Department [address] [place], [address], 03/09/2023 20:09:43 03/09/20 23 03/09/2023 CBC WITH DIFFE RENTI AL/PL ATELE T neutrophils 71.1 % 40.0-7 4.0 Not Available [facility] Department [address] [place], [address], 03/09/2023 20:09:43 03/09/20 23 03/09/2023 CBC WITH DIFFE RENTI AL/PL ATELE T lymphs 23.2 % 14.0-4 6.0 Not Available [facility] Department [address] [place], [address], 03/09/2023 20:09:43 03/09/20 23 03/09/2023 CBC WITH DIFFE RENTI AL/PL ATELE T monocytes 3.9 % 4.0-12 .0 below low normal Not Available [facility] Department [address] [place], [address], 03/09/2023 20:09:43 03/09/20 23 03/09/2023 CBC WITH DIFFE RENTI AL/PL ATELE T eos 1 % 0-5 Not Available [facility] Department [address] [place], [address], 03/09/2023 20:09:43 03/09/20 23 03/09/2023 CBC WITH DIFFE RENTI AL/PL ATELE T basos 0.3 % 0.0-1. 0 Not Available [facility] Department [address] [place], [address], 03/09/2023 20:09:43 03/09/20 23 03/09/2023 CBC WITH DIFFE RENTI AL/PL ATELE T neutrophils (absolute) 6.2 K/uL 1.4-7. 0 Not Available [facility] Department [address] [place], [address], 03/09/2023 20:09:43 03/09/20 23 03/09/2023 CBC WITH DIFFE RENTI AL/PL ATELE T lymphs (absolute) 2.0 K/uL 0.7-3. 1 Not Available [facility] Department [address] [place], [address], 03/09/2023 20:09:43 03/09/20 23 03/09/2023 CBC WITH DIFFE RENTI AL/PL ATELE T monocytes(ab solute) 0.3 K/uL 0.1-0. 9 Not Available [facility] Department [address] [place], [address], 03/09/2023 20:09:43 03/09/20 23 03/09/2023 CBC WITH DIFFE RENTI AL/PL ATELE T eos (absolute) 0.1 K/uL 0.0-0. 4 Not Available [facility] Department [address] [place], [address], 03/09/2023 20:09:43 03/09/20 23 03/09/2023 CBC WITH DIFFE RENTI AL/PL ATELE T baso (absolute) 0.0 K/uL 0.0-0. 3 Not Available [facility] Department [address] [place], [address], 03/09/2023 20:09:43 03/09/20 23 03/09/2023 CBC WITH DIFFE RENTI AL/PL ATELE T immature granulocytes 0.6 % Not Available [facility] Department [address] [place], [address], 03/09/2023 20:09:43 03/09/20 23 03/09/2023 CBC WITH DIFFE RENTI AL/PL ATELE T immature grans (abs) 0.1 K/uL Not Available [facility] Department [address] [place], [address], 03/09/2023 20:09:43 03/09/20 23 03/09/2023 CBC WITH DIFFE RENTI AL/PL ATELE T NRBC 0 % Not Available [facility] Department [address] [place], [address], 03/09/2023 20:09:43 03/09/20 23 03/11/2023 NUA B VAGIN ITIS PLUS (VG+) atopobium vaginae Low - 0 score Not Available [facility] ([facility]) [address] [place], [address], 03/12/2023 07:08:16 03/09/20 23 03/11/2023 NUA B VAGIN ITIS PLUS (VG+) bvab 2 Low - 0 score Not Available [facility] ([facility]) [address] [place], [address], 03/12/2023 07:08:16 03/09/20 23 03/11/2023 NUA B VAGIN ITIS PLUS (VG+) megasphaera 1 Low - 0 score Calcu late total score by tahira g the 3 indiv idual bacte rial vagin osis (BV) marke r score s toget her. Total score is inter prete d as follo ws: Total score 0-1: Indic ates the absen ce of BV. Total score 2: Indet ermin ate for BV. Addit ional clini tim data shoul d be evalu ated to estab arun a diagn osis. Total score 3-6: Indic ates the prese nce of BV. This test was rani rader and its perfo rmanc e mayo cteri stics deter mined by [facility]. It has not been clear ed or appro wendy by the Food and Drug Admin istra tion. Not Available [facility] ([facility]) [address] [place], [address], 03/12/2023 07:08:16 03/09/20 23 03/11/2023 NUSWA B VAGIN ITIS PLUS (VG+) cindy albicans, ELVIRA Negati ve negati ve Not Available [facility] ([facility]) [address] [place], [address], 03/12/2023 07:08:16 03/09/20 23 03/11/2023 NUA B VAGIN ITIS PLUS (VG+) cindy glabrata, ELVIRA Negati ve negati ve Not Available [facility] ([facility]) [address] [place], [address], 03/12/2023 07:08:16 03/09/20 23 03/12/2023 NUA B VAGIN ITIS PLUS (VG+) trich vag by ELVIRA Negati ve negati ve Not Available [facility] ([facility]) [address] [place], [address], 03/12/2023 07:08:16 03/09/20 23 03/12/2023 NUA B VAGIN ITIS PLUS (VG+) chlamydia trachomatis, ELVIRA Negati ve negati ve Not Available [facility] ([facility]) [address] [place], [address], 03/12/2023 07:08:16 03/09/20 23 03/12/2023 NUA B VAGIN ITIS PLUS (VG+) neisseria gonorrhoeae, ELVIRA Negati ve negati ve Not Available [facility] ([facility]) [address] [place], [address], 03/12/2023 07:08:16 03/09/20 23 03/09/2023 IGP,A PTIMA HPV,A GE GDLN age gdln acog testing 21-29 Not Available [facility] ([facility]) [address] [place], [address], 03/13/2023 14:09:55 03/09/20 23 03/10/2023 HCV ANTIB AARON RFX TO QUANT PCR HCV Ab Non Reacti ve nonrea ctive Not Available [facility] ([facility]) [address] [place], [address], 03/14/2023 03:07:31 03/09/20 23 03/10/2023 TSH+F REE T4 TSH 1.030 uIU/m L 0.450- 4.500 Not Available [facility] ([facility]) [address] [place], [address], 03/14/2023 03:07:33 03/09/20 23 03/10/2023 TSH+F REE T4 T4,free(dire ct) 1.16 NG/dL 0.82-1 .77 Not Available [facility] ([facility]) [address] [place], [address], 03/14/2023 03:07:33 03/09/20 23 03/10/2023 HEMOG LOBIN A1C hemoglobin A1C 5.4 % 4.8-5. 6 Predi abete s: 5.7 - 6.4 Diabe harmony: >6.4 Glyce denise contr ol for adult s with diabe harmony: <7.0 Not Available [facility] ([facility]) [address] [place], [address], 03/14/2023 03:07:34 03/09/20 23 03/10/2023 TESTO STERO NE testosterone 23 NG/dL 13-71 Not Available [facility] ([facility]) [address] [place], [address], 03/14/2023 03:07:35 03/09/20 23 03/10/2023 PROGE STERO NE progesterone 0.2 NG/mL Folli cular phase 0.1 - 0.9 Lutea l phase 1.8 - 23.9 Ovula tion phase 0.1 - 12.0 Pregn ant First trime ster 11.0 - 44.3 Secon d trime ster 25.4 - 83.3 Third trime ster 58.7 - 214.0 Postm enopa usal 0.0 - 0.1 Not Available [facility] ([facility]) [address] [place], [address], 03/14/2023 03:07:35 03/09/20 23 03/10/2023 PROLA CTIN prolactin 14.2 NG/mL 4.8-23 .3 Not Available [facility] ([facility]) [address] [place], [address], 03/14/2023 03:07:36 03/09/20 23 03/10/2023 ESTRA DIOL estradiol 25.2 pg/mL Adult Femal e: Folli cular phase 12.5 - 166.0 Ovula tion phase 85.8 - 498.0 Lutea l phase 43.8 - 211.0 Postm enopa usal <6.0 - 54.7 Pregn jan 1st trime ster 215.0 - >4300 .0 Jenna ECLIA metho dolog y Not Available [facility] ([facility]) [address] [place], [address], 03/14/2023 03:07:37 03/09/2003/10/2023 HBSAG SCREE N HBsAg screen Negati ve negati ve Not Available [facility] ([facility]) [address] [place], [address], 03/14/2023 03:07:37 03/09/20 23 03/10/2023 FSH AND LH LH 13.1 mIU/m L Adult Femal e: Folli cular phase 2.4 - 12.6 Ovula tion phase 14.0 - 95.6 Lutea l phase 1.0 - 11.4 Postm enopa usal 7.7 - 58.5 Not Available [facility] ([facility]) [address] [place], [address], 03/14/2023 03:07:38 03/09/20 23 03/10/2023 FSH AND LH FSH 5.3 mIU/m L Adult Femal e: Folli cular phase 3.5 - 12.5 Ovula tion phase 4.7 - 21.5 Lutea l phase 1.7 - 7.7 Postm enopa usal 25.8 - 134.8 Not Available [facility] ([facility]) [address] [place], [address], 03/14/2023 03:07:38 03/09/2003/13/2023 T PALLI DUM SCREE TRU CASCA DE T pallidum antibodies Non Reacti ve nonrea ctive Not Available [facility] ([facility]) [address] [place], [address], 03/14/2023 03:07:39 03/09/2003/10/2023 HIV AB/P2 4 AG WITH REFLE X HIV Ab/P24 Ag screen Non Reacti ve nonrea ctive HIV Negat torres HIV-1 /HIV- 2 antib odies and HIV-1 p24 antig en were NOT detec antolin. There is no labor atory evide nce of HIV infec tion. Not Available [facility] ([facility]) [address] [place], [address], 03/14/2023 03:07:39 03/09/2003/13/2023 IGP, RFX APTIM A HPV ASCU diagnosis: Commen t NEGAT TORRES FOR INTRA EPITH ELIAL LESIO N OR MALIG MUKESH . Not Available [facility] ([facility]) [address] [place], [address], 03/13/2023 14:09:56 03/09/20 23 03/13/2023 IGP, RFX APTIM A HPV ASCU specimen adequacy: Adarsh key Satis facto ry for evalu ation . Endoc ervic al and/o r squam ous metap lasti c cells (endo cervi tim compo nent) are prese nt. Areas of parti ally obscu ring blood are prese nt. Not Available [facility] ([facility]) [address] [place], [address], 03/13/2023 14:09:56 03/09/20 23 03/13/2023 IGP, RFX APTIM A HPV ASCU clinician provided ICD10: Adarsh key Z01.4 19 Z11.3 E28.2 N89.8 Not Available [facility] ([facility]) [address] [place], [address], 03/13/2023 14:09:56 03/09/20 23 03/13/2023 IGP, RFX APTIM A HPV ASCU performed by: Kathi Judd (ASCP ) Not Available [facility] ([facility]) [address] [place], [address], 03/13/2023 14:09:56 03/09/20 23 03/13/2023 IGP, RFX APTIM A HPV ASCU . . Not Available [facility] ([facility]) [address] [place], [address], 03/13/2023 14:09:56 03/09/20 23 03/13/2023 IGP, RFX APTIM A HPV ASCU note: Adarsh key The Pap smear is a scree tru test desig basasm to aid in the detec tion of douglas ligna nt and malig nant condi tions of the uteri ne cervi x. It is not a diagn ostic proce dure and shoul d not be used as the sole means of detec ting cervi tim cance r. Both false -posi tive and false -nega tive repor ts do occur . Not Available [facility] ([facility]) [address] [facility], [place], [address], 03/13/2023 14:09:56 03/09/20 23 03/13/2023 IGP, RFX APTIM A HPV ASCU test methodology: Commen t This liqui d based ThinP rep(R ) pap test was scree bassam with the use of an image guide d syste m. Not Available [facility] ([facility]) [address] [facility], [place], [address], 03/13/2023 14:09:56 03/09/2003/13/2023 IGP, RFX APTIM A HPV ASCU . Commen t The HPV DNA refle x crite arturo were not met with this speci men resul t there fore, no HPV testi ng was perfo rmed. Not Available [facility] ([facility]) [address] [facility], [place], [address], 03/13/2023 14:09:56 03/09/2003/10/2023 INTER PRETA TION: interpretati on: Commen t Not infec antolin with HCV unles s early or acute infec tion is suspe cted (whic h may be delay ed in an immun ocomp romis ed indiv idual ), or other evide nce exist s to indic ate HCV infec tion. Not Available [facility] ([facility]) [address] [facility], [place], [address], 03/14/2023 03:07:31 Result Notes None recorded. 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 Jimenez [place]iz[place] - [facility] 9 10:53:29 Group B Streptoco ccus carrier 299531327638 3 Active 2018 Jimenez soliz [place] - [facility] 9 12:45:27 Human papilloma virus infection 157968775 Active 2018 CHAVA Lester - [facility] 9 12:45:49 Polycysti c ovary syndrome 812194766 Active 2019 Jimenez soliz [place] - [facility] 0 16:43:46 Morbid obesity 872855108 Active 2019 Jimenez soliz [place] - [facility] 0 16:48:21 Bacterial vaginosis 615043405 Active 2019 Jimenez soliz [place] - [facility] 0 16:48:29 Infection by Trichomon as 13814770 Active 2019 Jimenez soliz [place] - [facility] 0 16:48:35 Cervical intraepit helial neoplasia grade 1 917276162 Active 2020 Jim[place]iz[place] - [facility] 1 16:46:41 Problem Notes None recorded. Procedures Surgical History Date Name Laterality Status Provider Name and Address Organization Details Recorded Time 03/09/20 Date of Last Pap Smear completed Ashanti Najera [place] - [facility] 03/09/2023 10:52:42 04/07/20 22 Colposcopy completed TOBIAS VAUGHAN Attn: Accounting[address] [place], [address], [facility] - [facility] 04/07/2022 13:36:35 04/07/20 colposcopy completed Ashanti Najera MA [place] - [facility] 04/07/2022 12:39:17 02/11/20 Colposcopy completed Jimenez Roth [place] - [facility] 02/10/2021 13:42:33 02/11/20 21 colposcopy completed ARLET Graham - [facility] 02/10/2021 12:51:17 07/19/20 Cholecystectomy completed Akila José MA [place] - [facility] 01/26/2021 12:09:57 Imaging Results None recorded. Procedure Notes None recorded. Medical Equipment None Reported. Allergies Allergen ID Allergen Name Allergen Category Reaction Reaction Severity Criticality Documentation Date Start Date Code Code System Note Provider Name and Address Organization Details Recorded Time [id number] citalopra m medicatio n rash severe Not available 03/09/2023 2556 RxNorm Ashanti Najera MA null, [place] - [facility] 3 10:50:47 Medications Name Sig Start Date Stop Date Status Note LastModified by Organization Details LastModified Time multivita min tablet Take 1 tablet every day by oral route. 10/28 completed Not Available Not Available Not Available methocarb claire 500 mg tablet active Not Available Not Available No t Available metformin 500 mg tablet Take 1 tablet twice a day by oral route. 01/26 completed Not Available Not Available Not Available promethaz ine-DM 6.25 mg-15 mg/5 mL oral syrup TAKE 5 ML BY MOUTH FOUR TIMES DAILY NEEDED FOR COUGH AND RUNNY NOSE 09/29 completed Not Available Not Available Not Available venlafaxi ne ER 37.5 mg capsule,e xtended release 24 hr 11/13 completed Not Available Not Available Not Available venlafaxi ne ER 75 mg capsule,e xtended release 24 hr TAKE 1 CAPSULE BY MOUTH EVERY MORNING 09/29 completed Not Available Not Available Not Available paroxetin e 10 mg tablet 11/13 completed Not Available Not Available Not Available ciproflox acin 750 mg tablet TAKE 1 TABLET BY MOUTH TWICE DAILY 09/29 completed Not Available Not Available Not Available triamcino lone acetonide 0.5 % topical cream APPLY A THIN LAYER TO THE AFFECTED AREA(S) TWO TIMES PER DAY NEEDED FOR RASH 10/28 completed Not Available Not Available Not Available cetirizin e 10 mg tablet TAKE 1 TABLET BY MOUTH EVERY DAY 01/26 completed Not Available Not Available Not Available azithromy harvinder 250 mg tablet TAKE 2 TABLETS BY MOUTH FOR 1 DAY THEN TAKE 1 TABLET BY MOUTH DAILY FOR 4 DAYS 03/09 completed Not Available Not Available Not Available tizanidin e 4 mg tablet 11/13 completed Not Available Not Available Not Available fluconazo le 150 mg tablet TAKE 1 TABLET BY MOUTH 1 TIME 03/09 completed Not Available Not Available Not Available citalopra m 10 mg tablet TAKE 1 TABLET BY MOUTH EVERY DAY 10/28 completed Not Available Not Available Not Available naltrexon e 50 mg tablet TAKE 1/2 TABLET BY MOUTH TWICE DAILY 10/28 completed Not Available Not Available Not Available phenazopy ridine 200 mg tablet 11/13 completed Not Available Not Available Not Available metronida zole 0.75 % (37.5 mg/5 gram) vaginal gel INSERT 1 APPLICAT ORFUL IN VAGINA NIGHTLY FOR 3 DAYS. 11/23 completed Not Available Not Available Not Available ondansetr on HCl 4 mg tablet 11/13 completed Not Available Not Available Not Available prednison e 20 mg tablet TAKE 1 TABLET BY MOUTH TWICE DAILY FOR 5 DAYS 09/29 completed Not Available Not Available Not Available sertralin e 100 mg tablet TAKE 1 TABLET BY MOUTH EVERY DAY 09/29 completed Not Available Not Available Not Available methylpre dnisolone 4 mg tablet TAKE 6 TABLETS ON DAY 1 AND DECREASE BY 1 TAB EACH DAY FOR A TOTAL OF 6 DAYS 10/28 completed Not Available Not Available Not Available Mor Low Dose Aspirin 81 mg tablet,de layed release Take 2 tablets every day by oral route. 11/23 completed Not Available Not Available Not Available triamcino lone acetonide 0.5 % topical ointment 11/13 completed Not Available Not Available Not Available metronida zole 500 mg tablet TAKE 1 TABLET BY MOUTH TWICE DAILY WITH FOOD UNTIL ALL TAKEN 03/09 completed Not Available Not Available Not Available ciproflox acin 250 mg tablet 11/13 completed Not Available Not Available Not Available ciproflox acin 500 mg tablet 12/23 completed Not Available Not Available Not Available sulfameth oxazole 800 mg-trimet hoprim 160 mg tablet 11/13 completed Not Available Not Available Not Available tramadol 50 mg tablet 11/13 completed Not Available Not Available Not Available Condoms-P rem Lubricate d Take 20 devices by miscell. route. 11/23 completed Not Available Not Available Not Available oxycodone -acetamin ophen 5 mg-325 mg tablet TAKE ONE TABLET BY MOUTH EVERY FOUR HOURS NEEDED FOR MODERATE TO SEVERE PAIN (4 10 ON PS) 11/23 completed Not Available Not Available Not Available amoxicill in 875 mg tablet 11/13 completed Not Available Not Available Not Available Pre-Aquilino tablet take 1 tablet every day by oral route. 05/16 completed Not Available Not Available Not Available imiquimod 5 % topical cream packet APPLY TO AFFECTED AREA FIVE TIMES PER WEEK 10/28 completed Not Available Not Available Not Available benzonata te 100 mg capsule 01/26 completed Not Available Not Available Not Available cephalexi n 500 mg capsule 03/09 completed Not Available Not Available Not Available cyanocoba kierra (vit B-12) 1,000 mcg/mL injection solution Inject 1 mL every month by intramus cular route. 05/16 completed Not Available Not Available Not Available oseltamiv ir 75 mg capsule 01/26 completed Not Available Not Available Not Available metformin 1,000 mg tablet TAKE 1 TABLET BY MOUTH TWICE A DAY 01/26 completed Not Available Not Available Not Available prednison e 50 mg tablet 05/16 completed Not Available Not Available Not Available lidocaine 5 % topical patch PLACE 1 PATCH ON THE SKIN EVERY DAY. REMOVE AND DISCARD PATCH WITHIN 12 HOURS OR DIRECTED BY 03/09 completed Not Available Not Available Not Available polymyxin B sulfate 10,000 unit-trim ethoprim 1 mg/mL eye drops 05/16 completed Not Available Not Available Not Available progester one micronize d 200 mg capsule Take 1 capsule twice a day by oral route for 14 days. 01/26 completed Not Available Not Available Not Available fluoxetin e 10 mg capsule TAKE 1 CAPSULE BY MOUTH EVERY DAY 10/28 completed Not Available Not Available Not Available diclofena c sodium 75 mg tablet,de layed release active Not Available Not Available Not Available folic acid 1 mg tablet TAKE FOUR TABLETS BY MOUTH EVERY DAY DIRECTED active Not Available Not Available No t Available hydroxyzi ne HCl 25 mg tablet TAKE 1 TABLET 3 TIMES A DAY BY ORAL ROUTE NEEDED. 10/28 completed Not Available Not Available Not Available codeine 10 mg-guaife nesin 100 mg/5 mL oral liquid 11/13 completed Not Available Not Available Not Available ibuprofen 600 mg tablet active Not Available Not Available Not Available letrozole 2.5 mg tablet Take 1 tablet every day by oral route for 5 days. 01/26 completed Not Available Not Available Not Available methylpre dnisolone 4 mg tablets in a dose pack FOLLOW PACKAGE DIRECTIO NS 03/09 completed Not Available Not Available Not Available albuterol sulfate HFA 90 mcg/actua tion aerosol inhaler INHALE 2 PUFFS BY MOUTH FOUR TIMES DAILY NEEDED FOR SHORTNES S OF BREATH OR WHEEZING active Not Available Not Available No t Available ketoconaz ole 2 % topical cream 11/13 completed Not Available Not Available Not Available ondansetr on 4 mg disintegr ating tablet active Not Available Not Available Not Available fluticaso ne propionat e 50 mcg/actua tion nasal spray,marium pension SHAKE LIQUID AND USE 1 SPRAY IN EACH NOSTRIL TWICE DAILY active Not Available Not Available No t Available clotrimaz ole 1 % topical cream 11/13 completed Not Available Not Available Not Available sertralin e 50 mg tablet TAKE 1 TABLET BY MOUTH EVERY DAY 09/29 completed Not Available Not Available Not Available amoxicill in 875 mg-potass ium clavulana te 125 mg tablet TAKE 1 TABLET BY MOUTH TWICE DAILY FOR 10 DAYS 03/09 completed Not Available Not Available Not Available hydroxyzi ne pamoate 25 mg capsule TAKE 1 CAPSULE BY MOUTH EVERY DAY NEEDED 09/29 completed Not Available Not Available Not Available Vitamin 27 mg iron-0.8 mg tablet Take 1 tablet every day by oral route. 01/26 completed Not Available Not Available Not Available cyclobenz aprine 5 mg tablet TAKE 1 TABLET BY MOUTH EVERY DAY AT BEDTIME 09/29 completed Not Available Not Available Not Available nitrofura ntoin monohydra te/macroc rystals 100 mg capsule 03/09 completed Not Available Not Available Not Available RepHresh vaginal gel Insert 8 g by vaginal route as needed. 11/23 completed Not Available Not Available Not Available Endometri n 100 mg vaginal insert INSERT 1 SUPPOSIT ORY VAGINALL Y TWICE A DAY 05/16 completed Not Available Not Available Not Available Calcium with Vitamin D 600 mg-10 mcg (400 unit) tablet Take 1 tablet twice a day by oral route. 01/26 completed Not Available Not Available Not Available Plan B One-Step 1.5 mg tablet Take 1 tablet by oral route. 2022 active patient met all criteas Not Available Not Available Not Available RepHresh Pro-B 2.5 billion cell capsule Take 1 capsule every day by oral route in the morning. 11/23 completed Not Available Not Available Not Available Banophen 50 mg capsule TAKE ONE CAPSULE BY MOUTH TWO TIMES A DAY NEEDED FOR RASH, DO NOT TAKE WITH HYDOXYZI NE 10/28 completed Not Available Not Available Not Available Plus 29 mg iron-1 mg tablet Take 1 tablet every day by oral route. 2018 active Not Available Not Available Not Avai lable 19 (with docusate) 29 mg iron-1 mg-25 mg tablet 05/16 completed Not Available Not Available Not Available June Fe 24 1 mg-20 mcg (24)/75 mg (4) tablet active Not Available Not Available Not Available bupropion HCl 150 mg tablet,12 hr sustained -release( smoking deterrent ) TAKE 1 TABLET BY MOUTH TWICE A DAY 10/28 completed Not Available Not Available Not Available Larissia 0.1 mg-20 mcg tablet 11/13 completed Not Available Not Available Not Available Slynd 4 mg (28) tablet TAKE 1 TABLET BY MOUTH EVERY DAY 04/07 completed Not Available Not Available Not Available Vitals Date Recorded Body height Body mass index (BMI) Body weight Systolic And Diastolic Provider Name and Address Organization Details Last Updated DateTime 09/29/2022 167.64 cm 51.6 kg/m2 188858.56 g 122/72 mm[Hg] Chelsea Salas [place] - [facility] 09/29/2022 09:44:15 Date Recorded Body height Body mass index (BMI) Body weight Systolic And Diastolic Provider Name and Address Organization Details Last Updated DateTime 10/28/2021 167.64 cm 46.6 kg/m2 592696.19 g 112/72 mm[Hg] Chelsea Salas [place] - [facility] 10/28/2021 12:51:49 Date Recorded Body height Body mass index (BMI) Body weight Systolic And Diastolic Provider Name and Address Organization Details Last Updated DateTime 02/10/2021 167.64 cm 43.4 kg/m2 049568.35 g 114/78 mm[Hg] Ashanti Najera MA [facility] 02/10/2021 13:11:29 Date Recorded Body height Body mass index (BMI) Body weight Systolic And Diastolic Provider Name and Address Organization Details Last Updated DateTime 03/09/2023 167.64 cm 51.5 kg/m2 316680.97 g 122/86 mm[Hg] Ashanti Najera MA [facility] 03/09/2023 10:57:16 Date Recorded Body height Body mass index (BMI) Body weight Systolic And Diastolic Provider Name and Address Organization Details Last Updated DateTime 04/07/2022 167.64 cm 50.4 kg/m2 698318.82 g 104/84 mm[Hg] Ashanti Najera MA [facility] 04/07/2022 12:41:39 Social History Question Answer Notes LastModified by Organizat ion Details LastModified Time Tobacco Smoking Status Never Smoker Ashanti Najera MA null, [facility] 11/13/2018 15:37:28 Do You Have An Advance Directive? No Information not available 11/13/2018 Is Blood Transfusion Acceptable In An Emergency? Yes Information not available 11/13/2018 What Is Your Level Of Caffeine Consumption? Occasional Information not available 01/26/2021 How Much Tobacco Do You Chew? None Information not available 11/13/2018 What Type Of Diet Are You Following? REGULAR Information not available 11/13/2018 Which Illicit Or Recreational Drugs Have You Used? None Information not available 11/13/2018 Education 12 Information no t available 11/13/2018 What Is The Highest Grade Or Level Of School You Have Completed Or The Highest Degree You Have Received? [id number] Information not available 11/23/2020 Live Alone Or With Others? With Others Information not available 11/13/2018 What Was The Date Of Your Most Recent Tobacco Screening? 03/09/2023 Information not available 03/09/2023 How Many Children Do You Have? 1 Information not available 11/13/2018 Performs Monthly Self-breast Exam? No Information no t available 11/13/2018 Do You Use Protection During Sex? No Information not available 11/13/2018 What Is Your Relationship Status? Single Information not available 11/13/2018 Do You Use Your Seat Belt Or Car Seat Routinely? Yes Information not available 11/23/2020 Seat Belts Used Routinely Yes Information not available 11/13/2018 Are You Sexually Active? Yes Information not available 11/13/2018 Do You Have Smoke And Carbon Monoxide Detectors In Your Home? Yes Information not available 02/10/2021 Are You Passively Exposed To Smoke? Yes Information no t available 11/23/2020 How Much Tobacco Do You Smoke? No Information not available 11/13/2018 General Stress Level High Information not available 11/13/2018 Do You Use Sunscreen Routinely? No Information not available 11/13/2018 Has Tobacco Cessation Counseling Been Provided? Yes Information not available 03/09/2023 On What Date Was Tobacco Cessation Counseling Provided? 03/09/2023 Information not available 03/09/2023 How Many Years Have You Smoked Tobacco? 0 Information not available 11/13/2018 Sex: Unknown Functional Status Question Answer Note LastModified by Organizat ion Details LastModified Time Do you use any illicit or recreational drugs? No Information not available 11/23/2020 Do you or have you ever used any other forms of tobacco or nicotine? No Information not available 11/23/2020 What is your level of alcohol consumption? None Information not available 01/26/2021 Do you or have you ever used smokeless tobacco? Never used smokeless tobacco Information not available 05/16/2019 Are you currently employed? No Information not available 01/26/2021 Do you or have you ever used e-cigarettes or vape? Never used electronic cigarettes Information not available 05/16/2019 What is your exercise level? None Information not available 11/13/2018 Mental Status None recorded. Family History Relationship Description Onset Age of this Age Resolved Age Notes LastModified by Organization Details LastModified Time Maternal Grandfather Diabetes mellitus Not available 11/13 15:37:13 Father No current problems or disability [email or web address] Not available 12/18 12:04:06 Mother No current problems or disability mwasserman Not available 12/18 12:04:06 Medical History Condition Response Other N High Blood Pressure N Breast Cancer N Thyroid Problems N Kidney or Bladder Problems N GI Problems N Depression N Blood Clots N Lung Disease N Acne N Breast Problem N Eating Disorder N Anemia N Anesthesia Complications N Headaches/Migraines N Anxiety Disorder N Diabetes N Ovarian Cancer N Muscle, Joint, or Bone Problems N Blood Transfusions N Seizures/Epilepsy N Polyps N Infertility N Acid Reflux (GERD) N Cancer N Abuse/Domestic Violence N Asthma N Endometriosis N High Cholesterol N Hepatitis N Liver Disease N Heart Disease N Pre-Eclampsia N Osteoporosis N Gynecological History Statement/Question Response Abnormal Pap Y Flow Light Date of LMP 02/04/2023 On BCP's at Conception? N STIs/STDs N HPV Vaccine Y Duration of Flow (days) 3 Age at Menarche 11 Current Control Method BCPs Age at First Child 15 Frequency of Cycle (Q days) 26 Sexually Active? Y Menses Monthly N Date of Last Pap Smear 03/09/2023 Sexual Problems? N LMP Approximate Desired Control Method BCPs Obstetrics History GPAL:G 2 P 1 0 1 1 Type Value Multiple Births 0 Full Term 1 Induced 0 Spontaneous 1 Premature 0 Living 1 Ectopics 0 Total 2 Immunizations Vaccine Type Date Status Note Provider Nam e and Address Organization Details Recorded Time COVID-19, mRNA, LNP-S, PF, 100 mcg/0.5mL dose or 50 mcg/0.25mL dose 02/23/2021 completed Ashanti N[place], [place] [facility] 04/07/2022 12:37:34 COVID-19, mRNA, LNP-S, PF, 100 mcg/0.5mL dose or 50 mcg/0.25mL dose 03/23/2021 completed Ashanti Naj[place], [place] [facility] 04/07/2022 12:37:49 COVID-19, mRNA, LNP-S, PF, 100 mcg/0.5mL dose or 50 mcg/0.25mL dose 09/22/2021 completed Ashanti Najera MA heydi, [place] - [facility] 04/07/2022 12:38:09 Tdap 11/13/2018 completed Not Available [facility] 10/05/2019 02:36:59 HPV9 05/31/2019 completed Not Available [facility] 10/05/2019 02:44:15 HPV9 07/22/2019 completed Not Available [facility] 10/05/2019 02:46:43 HPV9 2019 completed Ashanti Najera MA heydi, [place] - [facility] 2019 10:17:58 Past Encounters Encounter ID Performer Location Encounter Start Date Encounter Closed Date Diagnosis/Indication Diagnosis SNOMED-CT Code Diagnosis ICD10 Code Diagnosis IMO Codes Diagnosis Note [id number] MD Lawrence Lawson (ASSOCIATE PROFESSOR OF ENGINEERING) [address] [place] [address] 80753-981 0 11/13/2018 14:37:36 11/13/2018 17:16:39 Complete miscarriage 526984722 O03.9 Subchorionic hematoma 60 9626019 O41.8X99 source for miscarriag e due to low progestero ne Polycystic ovaries 03118 008 E28.2 [id number] [facility]ASSOCIATE PROFESSOR OF ENGINEERING) [address] [place] [address] [id number] 0 05/16/2019 11:06:53 05/17/2019 13:24:00 Gynecologic examination 78681487 Z01.419 Exposure t o sexually transmissible disorder 346121271 Z20.2 Past pregn jan history of miscarriage 563143374 Z87.59 [id number] MD Lawrence Lawson (ASSOCIATE PROFESSOR OF ENGINEERING) [address] [place] [address] [id number] 0 05/31/2019 11:46:26 06/03/2019 12:14:05 Active or passive immunization 943244584 Z23 [id number] MD Lawrence Lawson (ASSOCIATE PROFESSOR OF ENGINEERING) [address] [place] [address] [id number] 0 07/22/2019 11:31:16 07/23/2019 10:10:40 Infection by Trichomonas 15436223 A59.9 Family jose nning surveillance 963531287 Z30.09 Exposure t o sexually transmissible disorder 906799194 Z20.2 Z11.3 Active or passive immunization 984228978 Z23 [id number] MD Lawrence Lawson (ASSOCIATE PROFESSOR OF ENGINEERING) [address] [place] [address] [id number] 0 10/29/2019 15:05:25 10/30/2019 09:49:29 Infection by Trichomonas 44939762 A59.9 Human juan diego [place]oma virus infection 870477102 B97.7 Yuriy #3 scheduled for 11/15 Exposure t o sexually transmissible disorder 159342063 Z20.2 Bacterial vaginosis 4197 47026 N76.0 Nuvessa ;) Polycystic ovary syndrome 526370076 E28.2 Family [facility] nning surveillance 941584594 Z30.09 Morbid obesity 461235635 Z68.43 [id number] MD Lawrence Lawson (ASSOCIATE PROFESSOR [employer] ENGINEERING) [address] [place] [address] [id number] 0 2019 09:58:49 11/20/2019 14:23:05 Administration of viral vaccine 87192688 Z23 [id number] MD Lawrence Lawson (ASSOCIATE PROFESSOR OF ENGINEERING) [address] [place] [address] [id number] 0 11/20/2019 15:42:49 11/21/2019 12:25:28 Chlamydial urethritis 339723758 A56.01 [facility] nning surveillance 792189902 Z30.09 [id number] Jimenez Roth MD [facility] (ASSOCIATE PROFESSOR OF ENGINEERING) [address] [place] [address] [id number] 0 12/24/2019 12:24:59 12/25/2019 09:32:54 Sexually transmitted infectious disease 7834892 A64 [id number] MD Lawrence Lawson (ASSOCIATE PROFESSOR [employer] ENGINEERING) [address] [place] [address] [id number] 0 01/07/2020 10:05:21 01/10/2020 14:01:16 Bacterial vaginosis 516029305 N76.0 Candidiasis of vagina 72 963178 B37.3 Vulvovaginitis 43200153 N76.0 [id number] MD Lawrence Lawson (ASSOCIATE PROFESSOR [employer] ENGINEERING) [address] [place] [address] 75878-641 0 03/12/2020 09:17:42 03/13/2020 13:10:24 Amenorrhea 85906333 N91.2 Negative serum beta hcg [id number] MD Lawrence Lawson (ASSOCIATE PROFESSOR [employer] ENGINEERING) [address] [place] [address] [id number] 0 11/23/2020 09:26:28 11/27/2020 07:55:38 Polycystic ovary syndrome 406210394 E28.2 Morbid obesity 578493230 Z68.42 BMI 43 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 Family jose nning surveillance 451310382 Z30.09 History of chlamydial infection 345706224 Z86.19 Blocked fa llopian tube 850807228 N97.1 [id number] [facility] (ASSOCIATE PROFESSOR OF ENGINEERING) [address] [place] [address] 87399-124 0 01/26/2021 11:35:47 02/06/2021 08:47:52 Gynecologic examination 47234638 Z01.419 Z11.51 Exposure t o sexually transmissible disorder 101714504 Z20.2 Family jose nning surveillance 038961641 Z30.09 Human juan diego lloma virus infection 504147760 B97.7 Yuriy #3 scheduled for 11/15 Polycystic ovary syndrome 895507648 E28.2 Morbid obesity 970548545 Z68.42 BMI 43 [id number] MD Lawrence Lawson (ASSOCIATE PROFESSOR [employer] ENGINEERING) [address] [place] [address] [id number] 0 02/10/2021 12:18:57 02/12/2021 14:58:28 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 Non-smoker , no hx of smoking. Polycystic ovary syndrome 208988656 E28.2 Morbid obesity 706546005 Z68.42 BMI 43 High grade squamous intraepithelial lesion on cervical Papanicolaou smear 6199750212 9107 R87.613 Colpo suggestive of CIN2-3. Probably will need leep. [id number] [facility] (ASSOCIATE PROFESSOR OF ENGINEERING) [address] [place] [address] [id number] 0 10/28/2021 11:38:53 11/10/2021 08:42:22 Gynecologic examination 86528311 Z01.419 -cervical cancer screening: last Pap 01/26/21 with HSIL, HPV+. Updated today-sara lakhani completed, treat as needed-Sly nd for contracept ion-Counse led regarding prevention of STDs and condom use Contracept ion care management 509000699 Z30.9 Reassured pt that amenorrhea while on POPs in not uncommon. Pt would like to continue with Slynd, renewed. Cervical intraepithelial neoplasia grade 1 102853797 N87.0 Pathology 02/10/21 with LSIL, CIN1. Repeat Pap performed today as above. [id number] [facility]AS V[facility]AN [facility] (ASSOCIATE PROFESSOR OF ENGINEERING) [address] [place] [address] 70957-628 0 04/07/2022 12:26:08 04/12/2022 12:28:16 Low grade squamous intraepithelial lesion on cervical Papanicolaou smear 9913095129 9105 R87.612 Pap 10/28/21 with LSIL. Colpo with bx/ECC performed today as detailed in the procedure note. Will follow up with results. Human juan diego lloma virus infection 423131310 B97.7 She has received Gardasil series. Safe sex practices discussed. Contracept ion care management 949342780 Z30.9 Pt has been on Slynd but is reporting mood swings and is interested in switching to alternativ e OCP. Rx Junel. Counseled on use and side effects. RTC in 3 months. [id number] TOBIAS VAUGHAN [facility] (ASSOCIATE PROFESSOR OF ENGINEERING) [address] [place] [address] [id number] 0 09/29/2022 09:11:06 10/18/2022 10:01:59 Cervical intraepithelial neoplasia grade 1 467723890 N87.0 Colposcopy done in March 2022 with CIN1 (benign ECC). Advised that we should repeat Pap 1 year from colposcopy /biopsies with mild dysplasia per ASCCP guidelines . Pt will RTC in 6 months for Pap/wwe. [id number] TOBIAS VAUGHAN [facility] (ASSOCIATE PROFESSOR OF ENGINEERING) [address] [place] [address] 03/09/2023 10:26:09 03/19/2023 17:50:20 Contraception care management 983644256 Z30.9 Tolerating OCPs well, wishes to continue. Gynecologi c examination 33654616 Z01.419 Cervical cancer screening: H/o CIN1 2021, Pap updated todayBreas t cancer screening: Reviewed recommenda tions for initiation at age 40 with annual screening. Discussed SBEColonos copy: start screening at age 45STI screening: routine nuswabCont raception: OCPsDiet/e xercise: Counseled regarding importance of physical activity, healthy diet and appropriat e calcium intake.RTC in 1yr Vaginal discharge 631543 006 N89.8 Pt reporting discharge, nuswab performed to rule out infection. Venereal d isease screening 557635905 Z11.3 Routine screening requested, safe sex practices discussed. Morbid obesity 698834981 E66.01 BMI 51.5 Polycystic ovary syndrome 554253026 E28.2 Pt requesting annual labs and hormone levels today. Normal cycle with OCPs. Positive s creening for depression on PHQ-9 (Patient Health Questionnaire 9) 4338571768 21050 Z13.31 PHQ=7. Pt reports life stressors and depressed mood, denies SI/HI. Advised this could be contributi ng to symptoms of fatigue and decreased libido. Encouraged counseling . Health Concerns Section Related Observation LastModified by Organization Detai ls LastModified Time None Recorded Concern Status LastModified by Organization Details LastModified Time None Recorded Advance Directives Directive N: Payers Insurance Date Sequence Insurance Name Policy Number Policy Schmidt Covered Member ID Schmidt Member ID Guarantor Name 03/19/2023 1 [facility] (MEDICAID HMO) [id number] [place] Graciela [id number] Lilly Graciela Notes Date Note Type Note Provider Name and Address Organization Details Recorded Time 1 text/html Lilly Owens is a 25 year old F with PMHx of PCOS and morbid obesity. PAP performed on 01/26/21 positive for HPV and HSIL. Jimenez Roth [facility] [place] [facility] 02/10/2021 19:39:03 2 text/html 25 year old female with history of PCOS presents today with amenorrhea x 1 year and concerns about abnormal pap and colposcopy results. She is a previous patient of Dr. Roth. Patient has been having intermittent lower abdominal pain described as crampy pain but has not had any bleeding. She has been on Slynd x 1 year. She had an abnormal Pap January 2021 followed by a colposcopy (CIN1). Dr Roth told her to follow up in July 2021 which she has delayed until now. Patient denies odor, vaginal irritation, abnormal bleeding, and fever. TOBIAS VAUGHAN Attn: Accounting, [address] [place], [address], [facility] 11/09/2021 14:26:08 2 text/html ROS as noted in the HPI 26yo F with h/o PCOS presenting for colposcopy. She had a Pap Oct 2021 showing LSIL. She reports having abnormal Pap and same procedure last year with Dr. Roth, has not had LEEP (CIN1). She would also like to discuss control. She has been on Slynd and reports mood swings. She is wondering if this is related to OCPs. She is open to trying alternative contraceptives but would like to stay on OCPs. She is currently amenorrheic. Denies abnormal bleeding, discharge, pelvic pain, fevers, chills. Patient denies personal history of DVT/PE, HTN, cardiovascular disease, stroke, migraines, or seizures. She denies tobacco use. TOBIAS VAUGHAN Attn: Accounting, [address] [place], [address], [place] [facility] 04/07/2022 13:40:08 3 text/html ROS as noted in the HPI Patient is a female who presents today for follow up from colposcopy performed 04/07/2022. Denies discharge, pain during sex, irregular bleeding, and abnormal odor. TOBIAS VAUGHAN Attn: Accounting, [address] [place], [address], [place] 10/16/2022 21:53:44 3 text/html Annual GYNReported by PatientGenitourinary symptomsFor vagina, patient reportswhite. For menstrual cycle, patient reportsnormal menses. For urinary symptoms, patient reportsno hematuriaandno incontinence. For vulva, patient reportsno genital lesion.Breast symptomsFor breast, patient reportsno breast pain,no breast lump, andno nipple discharge.ContraceptionFo r current contraception, patient reportssatisfied with current contraception,oral contraceptives, andrequests testing for sexually transmitted infections.Endocrine symptomsFor sexual complaints, patient reportsdecreased libidobut reportsno sexual complaintsandno pain during intercourse. For menopausal symptoms, patient reportsno menopausal symptomsandnormal vaginal lubrication.Psychological symptomsFor psychological symptoms, patient reportsdepressionbut reportsno anxietyandno pmdd.Preventative measuresFor preventive measures, patient reportsencourage self breast examination,encourage regular exercise,encourage no tobacco use,encourage regular mammograms starting age 40,followed with yearly pap smears, andhistory of abnormal pap smear/cervical dysplasia.ROS as noted in the HPI 27yo F with h/o PCOS and CIN1 presenting for WWE/PAP. Feels hormones are out of balance due to fatigue and decreased libido, requesting labs today. She is still on OCPs with regular cycle. Does admit to depressed mood. TOBIAS VAUGHAN Attn: Accounting[address] [place], [address], [facility] 03/17/2023 17:03:41 OBGyn Episode Ob Episode Information Episode Created Date Number of Fetuses Patient Bloodtype Patient rh Status Prepregnancy Weight lbs Domestic Partner Domestic Partner Phone Father Name 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 Status 11/13/19 19 1 CLOSED Fetus Data First Name Last Name Admitted to NICU Weight (g) Sex Living Outcome Pediatric Complications Fetus ID Race Codes Race Delivery Type 3855.53 2 M Full Term [id number] Vaginal Jose Calculation Initial Jose Date Initial Exam Date Initial Exam Provider Initial Ultrasound Date Last Menstrual Period Date Ultra Sound Weeks Gestation 0 Eighteen To Twenty Week Jose Update Ultra Sound Date Fundal Height At Umbil Quickening Date Ultra Sound Latest Weeks Gestation Final Jose Confirmed By Final Jose Confirmed Date Final Jose Date Ultra Sound Latest Days Gestation 0 0 Menstrual History Last Menstrual Date Menses Monthly On Bcp Conception Prior Menses Frequency Hcg Plus Date Menarche Onset Age Delivery Information Delivery Date Delivery Type Labor Anesthesia Weeks Gestation Incision Type Labor Labor Length Hrs Delivered By Post Complications Tubal Sterilization Discharge Date Comments 1 Regional-Ep idural 39 12 Discharge Information Feeding Method Contraceptive Method Maternal HG B and HCT Levels Ob Episode Information Episode Created Date Number of Fetuses Patient Bloodtype Patient rh Status Prepregnancy Weight lbs Domestic Partner Domestic Partner Phone Father Name 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 Status 11/13/19 19 1 DELETED Fetus Data First Name Last Name Admitted to NICU Weight (g) Sex Living Outcome Pediatric Complications Fetus ID Race Codes Race Delivery Type [id number] Jose Calculation Initial Jose Date Initial Exam Date Initial Exam Provider Initial Ultrasound Date Last Menstrual Period Date Ultra Sound Weeks Gestation 05/16/2019 11/13/2018 08/09/2018 0 Eighteen To Twenty Week Jose Update Ultra Sound Date Fundal Height At Umbil Quickening Date Ultra Sound Latest Weeks Gestation Final Jose Confirmed By Final Jose Confirmed Date Final Jose Date Ultra Sound Latest Days Gestation 0 05/16/20 19 0 Menstrual History Last Menstrual Date Menses Monthly On Bcp Conception Prior Menses Frequency Hcg Plus Date Menarche Onset Age 1108/09/2018 true 13 Delivery Information Delivery Date Delivery Type Labor Anesthesia Weeks Gestation Incision Type Labor Labor Length Hrs Delivered By Post Complications Tubal Sterilization Discharge Date Comments Discharge Information Feeding Method Contraceptive Method Maternal HG B and HCT Levels Ob Episode Information Episode Created Date Number of Fetuses Patient Bloodtype Patient rh Status Prepregnancy Weight lbs Domestic Partner Domestic Partner Phone Father Name 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 Status 11/13/19 19 1 CLOSED Fetus Data First Name Last Name Admitted to NICU Weight (g) Sex Living Outcome Pediatric Complications Fetus ID Race Codes Race Delivery Type , Spontane ous [id number] Jose Calculation Initial Jose Date Initial Exam Date Initial Exam Provider Initial Ultrasound Date Last Menstrual Period Date Ultra Sound Weeks Gestation 0 Eighteen To Twenty Week Jose Update Ultra Sound Date Fundal Height At Umbil Quickening Date Ultra Sound Latest Weeks Gestation Final Jose Confirmed By Final Jose Confirmed Date Final Jose Date Ultra Sound Latest Days Gestation 0 0 Menstrual History Last Menstrual Date Menses Monthly On Bcp Conception Prior Menses Frequency Hcg Plus Date Menarche Onset Age Delivery Information Delivery Date Delivery Type Labor Anesthesia Weeks Gestation Incision Type Labor Labor Length Hrs Delivered By Post Complications Tubal Sterilization Discharge Date Comments 9 9 Discharge Information Feeding Method Contraceptive Method Maternal HG B and HCT Levels
[2025-08-13 16:00] VITALS: BP 129/81; PULSE 92; RESP 20; TEMP 36.3; O2SAT 100
--- NOTE | 2025-08-13 16:14 | ED.EAR ---
HPI - Ear Problem General Chief complaint: Ear Stated complaint: Cough/Ear Pain Time Seen by Provider: 08/13/25 16:09 Source: patient and RN notes reviewed Mode of arrival: ambulatory Limitations: no limitations History of Present Illness HPI Narrative: 29-year-old female presents with concern for bilateral ear pain and fullness, right-sided lymph node swelling, productive cough. Reports cough started 1 week ago, productive cough started recently, ear pain started 2 days ago. She has been taking cold and flu medicine relief. MD Complaint: ear pain Related Data Home Medications ?Medication ?Instructions ?Recorded ?Confirmed ?Last Taken ?Type norethindrone 1 mg-ethinyl tablet 03/28/24 Unknown History estradiol 20 mcg (24)-iron 75 mg (4) tablet (Aurovela 24 Fe) bupropion HCl 300 mg 24 hr tablet, mg PO 08/13/25 Unknown History extended release Allergies Allergy/AdvReac Type Severity Reaction Status Date / Time citalopram Allergy Severe Unknown Verified 08/13/25 16:05 Review of Systems Review of Systems: CONSTITUTIONAL: Denies malaise, chills, sweats, or fever. EYES: Denies visual changes, redness, or discharge. ENT: Reports rhinorrhea, congestion, bilateral ear pain CARDIOVASCULAR: Denies chest pain, palpitations, or edema. RESPIRATORY: Reports productive cough. Denies dyspnea. GASTROINTESTINAL: Denies abdominal pain, nausea, vomiting, diarrhea SKIN: Denies rash or itching. MUSCULOSKELETAL: Denies myalgia. NEUROLOGIC: Denies headache. All systems reviewed & are unremarkable except as noted in HPI and below PMFSH Past Medical History Medical History No significant past medical history Surgical History Surgical History History of tonsillectomy Family History Family History Grandparent Diabetes mellitus Grandparent Diabetes mellitus Social History Social History Smoking status: Never smoker Alcohol intake: current Alcohol use details: Occasionally Substance use: never Living arrangements: with family Occupation/Education: occupation Gender identity (if verbalized by the patient): Female Comments At time of signature, agree with nursing past medical, surgical, social and family history. There is no relevant family history pertinent to the presenting complaint Exam Narrative: GENERAL: Well-appearing, well-nourished, and in no acute distress. HEAD: Normocephalic EYES: PERRLA, conjunctivae clear ENT: Nares clear. Mucous membranes moist. TM pearly anderson with dull light reflex on the left, erythematous and bulging on the right; no tragal tenderness, EAC unremarkable. No post or pre-auricular erythema, induration, or warmth noted. Oropharynx not erythematous without lesions. Tonsils not enlarged and without exudate, no drooling, no hoarseness, no trismus, uvula midline. NECK: Supple. No lymphadenopathy CHEST: Clear to auscultation, breath sounds equal. No wheezing, rhonchi, rales, or stridor. No respiratory distress, speaks in full sentences. Harsh cough HEART: Regular rate and rhythm. No murmur heard. SKIN: Warm, dry, no rash. NEURO: Alert and oriented x3. PSYCH: Normal mood and affect Course Course Emergency Course: Patient is aware of diagnosis, understands and agrees to treatment plan. Anticipatory guidance given. Patient agrees to follow-up as directed and is aware of reasons to seek care at the emergency department. Portions of this record may have been created with voice recognition software Level of Care: [facility] [place] Visit Vital Signs Vital signs: Vital Signs Temperature 97.4 F L 08/13/25 16:00 Pulse Rate 92 08/13/25 16:00 Respiratory Rate 20 08/13/25 16:00 Blood Pressure 129/81 08/13/25 16:00 Pulse Oximetry 100 08/13/25 16:00 Oxygen Delivery Room Air 08/13/25 16:00 Temperature 97.4 F L 08/13/25 16:00 Pulse Rate 92 08/13/25 16:00 Respiratory Rate 20 08/13/25 16:00 Blood Pressure 129/81 08/13/25 16:00 Pulse Oximetry 100 08/13/25 16:00 Oxygen Delivery Room Air 08/13/25 16:00 Reviewed. Medical Decision Making MDM Narrative Medical decision making narrative: I evaluated this in the express care. History is obtained from patient who is an independent historian and physical exam was performed.? Available medical records were reviewed. ? Exam findings and relevant testing show no acute concerns or changes; patient is non-toxic appearing and is in no distress. Differential diagnosis considered: Graves virus, strep pharyngitis, allergic rhinitis, upper respiratory tract infection, sinusitis, rhinosinusitis, nasopharyngitis. viral pharyngitis, otitis media, otitis externa, otitis effusion, pre/post auricular cellulitis, mastoiditis, cerumen impaction, foreign body. Exam findings show no acute concerns or changes; patient is non-toxic appearing and is in no distress. Patient is appropriate for outpatient treatment and follow-up. ? Differential diagnosis and treatment plan were discussed with the patient. Patient agrees with discussion and after shared medical decision making agrees with plan of care. All questions were answered to the patient's satisfaction. Patient is appropriate for outpatient treatment and follow-up. Vital Signs Vital Signs: Vital Signs Temperature 97.4 F L 08/13/25 16:00 Pulse Rate 92 08/13/25 16:00 Respiratory Rate 20 08/13/25 16:00 Blood Pressure 129/81 08/13/25 16:00 Pulse Oximetry 100 08/13/25 16:00 Oxygen Delivery Room Air 08/13/25 16:00 Temperature 97.4 F L 08/13/25 16:00 Pulse Rate 92 08/13/25 16:00 Respiratory Rate 20 08/13/25 16:00 Blood Pressure 129/81 08/13/25 16:00 Pulse Oximetry 100 08/13/25 16:00 Oxygen Delivery Room Air 08/13/25 16:00 Critical Care Time Critical Care Time Critical Care Time: No Discharge Plan Discharge Clinical Impression: Otitis media, Bronchitis Patient Disposition: Home Condition: Stable Instructions: Antibiotic Form, Ear Infection (ED) Additional Instructions: Take antibiotics as directed. Recommend antihistamine such as Benadryl at night time and Zyrtec or Carlota during the day until symptoms improve Flonase nasal spray, 2 sprays in each nostril once daily until symptoms improve Also, recommend symptomatic treatment includes: rest, fluids, and increase humidity of the air at home. Recommend Acetaminophen as directed on the bottle to reduce fever, pain Please schedule a follow-up visit with your personal physician for further evaluation and treatment within 3-5days. If your symptoms persist, change or worsen significantly before you can contact your personal physician then please, without delay, go to the emergency department for further evaluation. Patient Language: Albanian Prescriptions: New prednisone 20 mg tablet 40 mg PO DAILY 5 Days Qty: 10 0RF amoxicillin 875 mg tablet 875 mg PO TID 10 Days Qty: 30 0RF No Action norethindrone-e.estradiol-iron [Aurovela 24 Fe] 1 mg-20 mcg (24)/75 mg (4) tablet bupropion HCl 300 mg tablet extended release 24 hr PO Follow-up/Referrals: Susie,MD Ceh [Primary Care Provider, Unknown] Time of Disposition: 16:21
== END 2025-08-13 16:24 | disposition home or self-care (01) ==
PROVIDERS: Emergency Provider Nurse Practitioner; PCP Family Medicine
DX: H66.93 Otitis media, unspecified, bilateral (principal); J40 Bronchitis, not specified as acute or chronic; Z79.899 Other long term (current) drug therapy
CPT/HCPCS: 99213; G0463